=== PATIENT | male | born 1955 | race Caucasian/White ===

== ENCOUNTER 2016-10-11 12:28 | Observation (INO) | payer BC ==
--- NOTE | 2016-10-11 13:18 | ED ---
Recheck HPI - General Chief Complaint: Recheck/Abnormal Lab/Rx Stated Complaint: Neck Swelling Time Seen by Provider: 10/11/16 12:50 Source: patient, family, EMS, RN notes reviewed Mode of arrival: EMS Limitations: no limitations - History of Present Illness Initial Comments: Patient is a pleasant [age]-year-old male presenting to the emergency department for neck swelling. Patient states symptoms started around 1 week ago. Symptoms have progressively worsened. Patient was at [facility] last night and kept in observation. Symptoms worsened since last night and patient was only able to tolerate a couple bites of his breakfast. No dyspnea. Patient was transferred for ENT evaluation. Patient states he does have moderate to severe discomfort. - Related Data Home Medications Medication Instructions Recorded Confirmed Citalopram Hydrobromide [CeleXA] 40 mg PO DAILY 03/12/14 10/11/16 Furosemide [Lasix] 20 mg PO DAILY 03/12/14 10/11/16 Multivitamins, Thera [Multivitamin 1 tab PO DAILY 03/12/14 10/11/16 (formulary)] PHENobarbital 180 mg PO HS 03/12/14 10/11/16 Levothyroxine Sodium [Synthroid] 175 mcg PO DAILY 10/11/16 10/11/16 predniSONE 3 mg PO DAILY 10/11/16 10/11/16 predniSONE 5 mg PO DAILY 10/11/16 10/11/16 Allergies Allergy/AdvReac Type Severity Reaction Status Date / Time carbamazepine [From Tegretol] Allergy Dyspnea Verified 10/11/16 13:27 phenytoin sodium Allergy Rash/Hives Verified 10/11/16 13:27 [From Dilantin] Review of Systems ROS Statement: Those systems with pertinent positive or pertinent negative responses have been documented in the HPI. ROS Other: All systems not noted in ROS Statement are negative. Constitutional: Denies: fever, chills Eyes: Denies: eye pain ENT: Denies: ear pain Respiratory: Denies: cough, dyspnea Cardiovascular: Denies: chest pain Endocrine: Denies: fatigue Gastrointestinal: Denies: abdominal pain Genitourinary: Denies: urgency Musculoskeletal: Denies: back pain Skin: Denies: rash Neurological: Denies: weakness Past Medical History Past Medical History: COPD, Eye Disorder, Hypertension, Musculoskeletal Disorder , Osteoarthritis (OA), Pneumonia, Seizure Disorder, Sleep Apnea/CPAP/BIPAP, Thyroid Disorder Additional Past Medical History / Comment(s): TESTED POSITIVE FOR Lyme's , HAD 1 SEIZURE JUNE 05, 1994 NONE SINCE TAKE PHENOBARBITAL FOR THEM.HX TRIGEMINY, CATARACTS, ECZEMA LT PALM AND BEHIND EARS, NOT USING CPAP ANYMORE AFTER DROPPING 40 POUNDSDOES'NT NEED IT AMYMORE. HAS BXO, sarcoidosis History of Any Multi-Drug Resistant Organisms: MRSA Date of last positivie culture/infection: 2006/MRSA MDRO Source:: left knee Past Surgical History: Adenoidectomy, Joint Replacement, Orthopedic Surgery, Tonsillectomy Additional Past Surgical History / Comment(s): 12-30-13 RT KNEE MENISCUS SX, LT HIP REPLACEMENT 1998, MUSCLE BIOPSY RT THIGH-NEG, X3 ROTATOR CUFF SX THEN REPLACED IN 2012,, I&D LT KNEE POSITIVE FOR MRSA 2005, X3 CYSTOCOPIES, [id number],URETHERAL STENT, BUCKLE FLAP URETHROPLASTY. Past Anesthesia/Blood Transfusion Reactions: Motion Sickness, Postoperative Nausea & Vomiting (PONV) Additional Past Anesthesia/Blood Transfusion Reaction / Comment(s): HAD BLOOD TRANSFUSIONS WITHOUT PROBLEMS Past Psychological History: Depression Smoking Status: Never smoker - Past Family History Father Family Medical History: Congestive Heart Failure (CHF), Diabetes Mellitus, Myocardial Infarction ([place]) Additional Family Medical History / Comment(s): HEAVY SMOKER, EMPHYSEMA, FROM CHF Mother Family Medical History: Cancer Additional Family Medical History / Comment(s): FOUND ALL ATHRU HER BY TIME THEY FOUND. General Exam Limitations: no limitations General appearance: alert, in no apparent distress Head exam: Present: atraumatic Eye exam: Present: normal appearance, PERRL, EOMI ENT exam: Present: normal oropharynx Neck exam: Present: other (Left submandibular region with swelling, firmness and tenderness. No erythema or warmth.) Respiratory exam: Present: normal lung sounds bilaterally Cardiovascular Exam: Present: regular rate, normal rhythm GI/Abdominal exam: Present: soft. Absent: tenderness Extremities exam: Present: normal inspection Neurological exam: Present: alert Psychiatric exam: Present: normal affect, normal mood Skin exam: Present: normal color Course Vital Signs 10/11/16 10/11/16 12:31 13:32 Pulse Rate 91 100 Respiratory 17 18 Rate Blood Pressure 158/99 135/76 O2 Sat by Pulse 99 97 Oximetry Medical Decision Making - Medical Decision Making Case was discussed in detail with Dr. Elias, who will consult. He recommends medical admission and Unasyn. And Decadron. Disposition Clinical Impression: Sialadenitis Disposition: ADMITTED IP TO THIS HOSP Referrals: Pascual Andres MD [Primary Care Provider] - 1-2 days Decision Time: 13:53
[2016-10-11] MEDS ORDERED: MORPHINE SULFATE 4 MG/ML SYRINGE IVP STA (13:31)
[2016-10-11] MEDS ORDERED: MORPHINE SULFATE 4 MG/ML SYRINGE IV PRN (13:53)
[2016-10-11] MEDS ORDERED: HYDROcodone/APAP 5-325MG 1 EACH TAB PO PRN (13:53)
[2016-10-11] MEDS ORDERED: NALOXONE 0.4 MG/ML 1 ML VIAL IV PRN (13:53)
[2016-10-11] MEDS: SODIUM CHLORIDE 0.9% 1,000 ML IV SCH (15:19)
[2016-10-11] MEDS: AMPICILLIN-SULBACTAM 3 GM in SODIUM CHLORIDE 0.9% 100 ML IVPB SCH ×2 (16:10→23:41)
[2016-10-11] MEDS: DEXAMETHASONE SOD PHOSPHATE 4 MG/ML 1 ML VIAL IV SCH ×2 (16:10→23:42)
[2016-10-11] MEDS: PHENobarbital 64.8 MG TAB PO SCH (22:32)
[2016-10-12] MEDS: LEVOTHYROXINE 88 MCG TAB PO SCH (06:41)
[2016-10-12] MEDS: AMPICILLIN-SULBACTAM 3 GM in SODIUM CHLORIDE 0.9% 100 ML IVPB SCH ×2 (08:39→16:37)
[2016-10-12] MEDS ORDERED: LIDOCAINE 1% 20 ML VIAL (10MG/ML) FOR IV START INTRADERMA ONE (10:58)
[2016-10-12] MEDS ORDERED: LACTATED RINGERS 1,000 ML IV ONE (10:58)
[2016-10-12 11:07] LABS: Glucose,Whole Blood 103 mg/dL (75-99)
[2016-10-12] MEDS ORDERED: PROPOFOL 10 MG/ML 20 ML VIAL IV ONE (11:26)
[2016-10-12] MEDS ORDERED: HYDROCORTISONE SUCCINATE 100 MG/2 ML VIAL ONE (11:26)
[2016-10-12] MEDS ORDERED: SUCCINYLCHOLINE CHLORIDE 100 MG/5 ML SYR IV ONE (11:26)
[2016-10-12] MEDS ORDERED: MIDAZOLAM 2 MG/2 ML VIAL ONE (11:26)
[2016-10-12] MEDS ORDERED: LIDOCAINE 1% INJ 10MG/ML (20 ML MDV) ONE (11:26)
[2016-10-12] MEDS ORDERED: fentaNYL (PF) 50 MCG/ML 2 ML AMP ONE (11:26)
[2016-10-12] MEDS ORDERED: LIDOCAINE 2%-EPI 1:100,000 20 ML VIAL SQ ONE (11:46)
--- NOTE | 2016-10-12 12:09 | P.OP ---
Date of Procedure: 10/12/16 Preoperative Diagnosis: Sialolithiasis left Jefferson's duct with secondary sialoadenitis left submandibular Postoperative Diagnosis: Same Procedure(s) Performed: Sialolithotomy left Shravan's duct Implants: Anesthesia: RICARDOA Surgeon: Alfredo Cox Estimated Blood Loss (ml): 2 Condition: stable Disposition: PACU Indications for Procedure: This is a 61-year-old white male who for a week and intermittent swelling of the left submandibular gland with eating and drinking but this would subside. 2 days ago this became persistently swollen and tender and he went to the ER for evaluation with left submandibular sialoadenitis and was felt to be obstructive as her was a 4 mm calculus noted in the proximal duct. This could not be removed at bedside. He has improved quite markedly symptomatically with IV antibiotics and steroids already but still has some swelling of the left submandibular gland diffusely Operative Findings: Patient had purulence from the left Jefferson's duct. The calculus was too far proximal to be removed but is having improvement with symptoms and salivary flow and therefore no excessive manipulation of the duct was performed Description of Procedure: The patient was brought in the operative suite and placed in supine position. The patient underwent induction of general anesthesia with oral endotracheal intubation without difficulty. The patient was prepped and draped in usual aseptic fashion. The bite block was placed. The tongue was retracted. 1% lidocaine with 1 100,000 epinephrine was infused submucosally overlying the left Jefferson's duct. The duct was palpated and purulence was obtained at the orifice were he had sialolithotomy last night and this was cultured. The sialolithotomy was extended approximately 1 cm with the calculus could not be palpated any further at the distal aspect of the duct or even proximally. Given the fact that the patient has improved and is having more drainage now it was felt that any further manipulation of the duct could cause potential scarring and if the patient has any recurrent or chronic difficulties with this gland then would need to consider submandibular gland excision. The patient was allowed to emerge from anesthesia having tolerated procedure well was excised in the operating suite and transferred postoperative recovery area in satisfactory condition.
--- NOTE | 2016-10-12 12:10 | CONS ---
CONSULTATION Date of Consultation: REASON FOR CONSULTATION: Left neck swelling. HISTORY: This is a 61-year-old white male, who a week ago started having difficulties with intermittent left neck swelling particularly with eating or drinking where this would swell and then subside between meals. He has not had difficulties like this previous. He attempted to be seen by his primary care physician and could not get in, also called an ENT in [place] and could not get into their office. He has subsequently over the past 2 days worsened with more acute swelling and chronic swelling in the left mandibular area and ultimately was admitted to [facility] on IV antibiotics. He was not improving particularly and therefore and had CT scan of the neck showing some further swelling and therefore he came to the [place] [facility] for further evaluation and was admitted as he did have some hypopharyngeal swelling also. He had some dysphagia with this, although this has improved with the steroids. He has not had difficulties like this previously. His CT scan also showed a calculus in the left Shravan's duct area which was not reported on the CT from yesterday but was on the CT from today. This was reported on his CT from today. This was not able to be visualized on attempted CT review initially here including by myself. He has had no fever or chills and again has improved with the IV steroid and IV antibiotics. PAST MEDICAL HISTORY: Positive for COPD, hypertension, musculoskeletal osteoarthritis, seizure disorder, sleep apnea, thyroid disorder. PAST SURGICAL HISTORY: Adenoidectomy, joint replacement, orthopedic surgery, tonsillectomy, rotator cuff surgery, left knee surgery. cystoscopy, urethroscopy. ALLERGIES: TEGRETOL, PHENYTOIN. CURRENT MEDICATIONS: Celexa, Lasix, phenobarbital. multivitamin, Synthroid. SOCIAL HISTORY: Does not smoke or drink alcohol. FAMILY HISTORY: Noncontributory, other than as above. Denies fever or chills. VITAL SIGNS: Afebrile. Vital signs stable otherwise. GENERAL EXAM: Patient is alert, awake, and oriented x3. HEENT: Head normocephalic and atraumatic. Ears, bilateral canals are clear. Tympanic membranes are unremarkable, mobile, no history of drainage or discharge. Mouth and throat shows no abnormal masses or lesions. There was felt to be a palpable calculus left distal left Shravan's duct. No oral or oropharyngeal swelling. Hypopharynx and larynx are clear with good visualization of vocal cords and excellent airway. No trismus. Neck is supple. There diffuse swelling of the left submandibular gland which is firm with mild tenderness, is still mobile, mild to moderately tender. ASSESSMENT: Sialoadenitis left submandibular, left Shravan's duct calculus. PLAN: I recommend initial sialolithotomy at the bedside which was performed under local anesthesia at the duct but no calculus was noted and therefore no further persistence was noted. Minimal purulence was expressed from the duct; however. CT was then re- loaded on a different computer and images were able to be reviewed and the calculus was more in the proximal duct and not able to be removed at the bedside, therefore. Recommend sialolithotomy under anesthesia and I reviewed indications, alteratives, potential benefits and risks of procedure with the patient and his family with the risks including, but not inclusive of the risk of general anesthesia, bleeding, infection, scarring, duct blockage, inability to clear the calculus intraorally, ultimately potential need for submandibular gland excision, numbness, recurrent symptomatology. Patient understands the risks and agrees to proceed. This will be attempted to be scheduled for tomorrow. He will be n.p.o. at midnight. MMODL / IJN: [id number] /
[2016-10-12] MEDS: DEXAMETHASONE SOD PHOSPHATE 4 MG/ML 1 ML VIAL IV SCH ×2 (13:02→17:14)
[2016-10-12] MEDS: predniSONE 1 MG TAB PO SCH (13:06)
[2016-10-12] MEDS: CITALOPRAM HYDROBROMIDE 20 MG TAB PO SCH (13:06)
[2016-10-12] MEDS: predniSONE 5 MG TAB PO SCH (13:06)
[2016-10-12] MEDS: MULTIVITAMINS, THERA 1 EACH TAB PO SCH (13:06)
[2016-10-12] MEDS: FUROSEMIDE 20 MG TAB PO SCH (13:06)
[2016-10-12] MEDS: SODIUM CHLORIDE 0.9% 1,000 ML IV SCH (13:06)
--- NOTE | 2016-10-12 16:40 | HP ---
HISTORY AND PHYSICAL SUBJECTIVE: 61-year-old with left facial swelling. HISTORY OF PRESENT ILLNESS: This 61-year-old, developed neck swelling on the left-sided, parotid swelling. He came to the hospital due to increasing pain. Unable to tolerate chewing of any food. He has got no dyspnea. ENT will be seeing him in the morning due to moderate to severe discomfort. HOME MEDICATIONS: 1. Lasix 20 mg. 2. Celexa 40 daily. 3. Multivitamin daily. 4. Phenobarbital 180 q.h.s. 5. Prednisone 3 mg daily, 5 mg daily. 6. Synthroid 175 mcg daily. ALLERGIES: CARBAMAZEPINE AND DILANTIN. REVIEW OF SYSTEMS: Fourteen point review of symptoms negative except for as mentioned in HPI. PAST MEDICAL AND SURGICAL HISTORY: Includes right-sided parotid endarterectomy with stone removed at home by himself in the past, COPD, hypertension, osteoarthritis, pneumonia, seizure disordered, sleep apnea, hypothyroidism. He has history of trigeminy, trigeminal neuralgia, cataracts, eczema, sarcoidosis, surgery of adenoidectomy and joint replacements and orthopedic surgeries, tonsillectomy and right knee meniscus surgery. FAMILY HISTORY: Father with heart failure, diabetes and heart attack. Mother with cancer. PHYSICAL EXAM: Vital signs stable and afebrile. CARDIOVASCULAR: S1, S2. LUNGS: Clear. GI: Soft. HEMATOLOGIC: Negative Rachel's. PSYCH: Fair mood and affect. NEUROLOGIC: Alert, oriented x3. OPHTHALMOLOGIC: Pupils equal, round and reactive to light and accommodation. ENT shows left mandibular swelling and parotid swelling and inner cheek tenderness to palpation over the duct area. ASSESSMENT: Acute sialoadenitis. Admit, ENT consultation, pain control, fluids will be given, n.p.o. MMODL / IJN: [id number] /
[2016-10-12] MEDS: PHENobarbital 64.8 MG TAB PO SCH (20:30)
[2016-10-13] MEDS: AMPICILLIN-SULBACTAM 3 GM in SODIUM CHLORIDE 0.9% 100 ML IVPB SCH ×2 (01:49→08:11)
[2016-10-13] MEDS: DEXAMETHASONE SOD PHOSPHATE 4 MG/ML 1 ML VIAL IV SCH ×2 (01:50→08:11)
[2016-10-13] MEDS: LEVOTHYROXINE 88 MCG TAB PO SCH (06:37)
[2016-10-13 08:11] VITALS: BP 160/89; PULSE 74; RESP 16; TEMP 98
[2016-10-13] MEDS: CITALOPRAM HYDROBROMIDE 20 MG TAB PO SCH (08:11)
[2016-10-13] MEDS: predniSONE 1 MG TAB PO SCH (08:11)
[2016-10-13] MEDS: predniSONE 5 MG TAB PO SCH (08:11)
[2016-10-13] MEDS: FUROSEMIDE 20 MG TAB PO SCH (09:34)
--- NOTE | 2016-10-13 10:35 | PN ---
PROGRESS NOTE SUBJECTIVE: 61-year-old, white male, who is having no chest pain, shortness of breath. Vital signs are reviewed. Still has some swelling on his left facial area. He is going to have a stone extracted in the OR today. Cardiovascular: S1, S2. Lungs: Transmitted upper airway sounds. Hematologic: Negative Homans. ENT: Swelling on the left cheek unchanged. ASSESSMENT: 1. Obstructive sialoadenitis. 2. Obesity. For further conditions see old chart. Cleared for surgery. Make sure his EKG looks good prior to surgery. MMODL / IJN: [id number] /
[2016-10-13] MEDS: MULTIVITAMINS, THERA 1 EACH TAB PO SCH (12:48)
--- NOTE | 2016-10-13 19:24 | P.DS ---
Providers Date of admission: 10/11/16 13:53 Attending physician: Adrian Ayala Consults: 10/11/16 13:54 Consult Physician Urgent Consulting Provider: Alfredo Cox Reason/Comments: Obstructive sialadenitis Do you want consulting provider notified?: Already Contacted [facility] Course: This 61-year-old gentleman that is admitted to the hospital with the significant swelling in his left neck. Patient was noted to have sialadenitis due to an obstruction Patient underwent an operative procedure by ENT was noted to have pus Patient was started on antibiotics and was given steroids Patient apparently has had multiple episodes of similar sialadenitis has a long history of dry eyes and dry mouth When questioned about a previous evaluation for sjogrens syndrome patient states he's never been evaluated Today she continues to have some swelling in his neck however nontender to palpation para lungs are clear to auscultation para graft heart S1-S2 heard no murmurs appreciable Abdomen soft nontender no organomegaly Head is atraumatic normocephalic pupils equal round reactive light, patient No significant conjunctival erythema is noted Discharge diagnoses #1 sialadenitis #2 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 Did discuss use in artificial tears and artificial saliva Patient be discharged on Augmentin and prednisone Is to follow-up with Dr. Sorto Plan - Discharge Summary New Discharge Prescriptions: New Amoxic-Pot Clav 500-125 mg [Augmentin 500-125 mg] 1 tab PO Q12HR #10 tab methylPREDNISolone Dose Pack [Medrol Dose Pack] 4 mg PO DIRECTED #21 package Continue Citalopram Hydrobromide [CeleXA] 40 mg PO DAILY Furosemide [Lasix] 20 mg PO DAILY PHENobarbital 180 mg PO HS Multivitamins, Thera [Multivitamin (formulary)] 1 tab PO DAILY predniSONE 3 mg PO DAILY predniSONE 5 mg PO DAILY Levothyroxine Sodium [Synthroid] 175 mcg PO DAILY Discharge Medication List Citalopram Hydrobromide [CeleXA] 40 mg PO DAILY 03/12/14 [History] Furosemide [Lasix] 20 mg PO DAILY 03/12/14 [History] Multivitamins, Thera [Multivitamin (formulary)] 1 tab PO DAILY 03/12/14 [History ] PHENobarbital 180 mg PO HS 03/12/14 [History] Levothyroxine Sodium [Synthroid] 175 mcg PO DAILY 10/11/16 [History] predniSONE 3 mg PO DAILY 10/11/16 [History] predniSONE 5 mg PO DAILY 10/11/16 [History] Amoxic-Pot Clav 500-125 mg [Augmentin 500-125 mg] 1 tab PO Q12HR #10 tab [Rx] methylPREDNISolone Dose Pack [Medrol Dose Pack] 4 mg PO DIRECTED #21 package 10/13/16 [Rx] Follow up Appointment(s)/Referral(s): Alfredo Cox MD [STAFF PHYSICIAN] - 1 Week Pascual Andres MD [Primary Care Provider] - 1 Week Activity/Diet/Wound Care/Special Instructions: Needs follow-up in office [address] Sorto (patient to call office on Saturday morning) If patient's symptoms worsen in the meantime he is to call. Diet as tolerated Discharge Disposition: HOME SELF-CARE
== END 2016-10-13 15:35 | disposition home or self-care (01) ==
LOC: EC 12:28 → 3OBS 13:53
PROVIDERS: ADMIT Family Medicine; ATTEND Family Medicine
DX: K11.21 Acute sialoadenitis (principal); K11.5 Sialolithiasis; R68.2 Dry mouth, unspecified; H04.123 Dry eye syndrome of bilateral lacrimal glands; E66.9 Obesity, unspecified; Z68.34 Body mass index [BMI] 34.0-34.9, adult; Z79.899 Other long term (current) drug therapy; Z79.52 Long term (current) use of systemic steroids; Z88.8 Allergy status to other drugs, medicaments and biological substances; Z86.14 Personal history of Methicillin resistant Staphylococcus aureus infection; F32.9 Major depressive disorder, single episode, unspecified; Z83.3 Family history of diabetes mellitus; Z82.49 Family history of ischemic heart disease and other diseases of the circulatory system; I10 Essential (primary) hypertension; Z87.01 Personal history of pneumonia (recurrent); G40.909 Epilepsy, unspecified, not intractable, without status epilepticus; A69.20 Lyme disease, unspecified; R00.8 Other abnormalities of heart beat; E03.9 Hypothyroidism, unspecified; Z80.9 Family history of malignant neoplasm, unspecified; E78.5 Hyperlipidemia, unspecified; J44.9 Chronic obstructive pulmonary disease, unspecified; D86.9 Sarcoidosis, unspecified; G47.33 Obstructive sleep apnea (adult) (pediatric); K21.9 Gastro-esophageal reflux disease without esophagitis
CPT/HCPCS: 42330; 99284 ×2; 96375 ×3; 96365; 96366 ×2; 96376; 86226; 87070; 87205; 87075; G0378 ×3; J2250; J2270 ×2; J1100 ×3; J1720; J2001; J3010; J0295 ×3; J0330; J2704; J7512 ×4

== ENCOUNTER 2021-07-29 09:06 | Inpatient (IN) | payer MEDICARE, OTHER ==
--- NOTE | 2021-07-29 09:21 | ED ---
General Adult HPI - General Chief complaint: Shortness of Breath Stated complaint: SOB, Covid + Time Seen by Provider: 07/29/21 09:07 Source: patient, EMS, RN notes reviewed, old records reviewed (Reviewed report from [facility]) Mode of arrival: EMS Limitations: no limitations - History of Present Illness Initial comments: Patient is a pleasant 66-year-old male presenting to the emergency Department with shortness of breath. Patient does have history of sarcoidosis affecting the lungs and is in the process of getting a transplant list at [facility]. Patient went to [facility] with symptoms onset 2 days ago. Patient has been having more shortness of breath. Patient does have cough with clear yellow sputum. Patient has been fatigued. Patient does wear 4 L oxygen at home. While at [facility] patient was diagnosed with pneumonia and COVID-19 infection. White blood cell count elevated at 16. They did try to transfer to [facility] however they did not have any beds available for least 5 days. They were under the impression that patient had pulmonary doctor here however patient states this is not true. Patient reportedly had pulse ox 86% on 4 L that raised to 94% on 5 L. Patient was given Rocephin and azithromycin and DuoNeb. Blood cultures were ordered. - Related Data Home Medications Medication Instructions Recorded Confirmed Citalopram Hydrobromide [CeleXA] 40 mg PO DAILY 03/12/14 10/11/16 Furosemide [Lasix] 20 mg PO DAILY 03/12/14 10/11/16 Multivitamins, Thera [Multivitamin 1 tab PO DAILY 03/12/14 10/11/16 (formulary)] PHENobarbital 180 mg PO HS 03/12/14 10/11/16 Levothyroxine Sodium [Synthroid] 175 mcg PO DAILY 10/11/16 10/11/16 predniSONE 3 mg PO DAILY 10/11/16 10/11/16 predniSONE 5 mg PO DAILY 10/11/16 10/11/16 Previous Rx's Medication Instructions Recorded Amoxic-Pot Clav 500-125 mg 1 tab PO Q12HR #10 tab 10/13/16 [Augmentin 500-125 mg] methylPREDNISolone Dose Pack 4 mg PO DIRECTED #21 package 10/13/16 [Medrol Dose Pack] Allergies Allergy/AdvReac Type Severity Reaction Status Date / Time carbamazepine [From Tegretol] Allergy Dyspnea Verified 10/11/16 13:27 phenytoin sodium Allergy Rash/Hives Verified 10/11/16 13:27 [From Dilantin] Review of Systems ROS Statement: Those systems with pertinent positive or pertinent negative responses have been documented in the HPI. ROS Other: All systems not noted in ROS Statement are negative. Constitutional: Reports: chills Eyes: Denies: eye pain ENT: Denies: ear pain Respiratory: Reports: as per HPI, cough, dyspnea Cardiovascular: Denies: chest pain Endocrine: Reports: fatigue Gastrointestinal: Denies: abdominal pain Genitourinary: Denies: dysuria Musculoskeletal: Denies: back pain Skin: Denies: rash Neurological: Denies: weakness Past Medical History Past Medical History: Eye Disorder, Hypertension, Musculoskeletal Disorder, Osteoarthritis (OA), Pneumonia, Seizure Disorder, Sleep Apnea/CPAP/BIPAP, Thyroid Disorder Additional Past Medical History / Comment(s): TESTED POSITIVE FOR Lyme's , HAD 1 SEIZURE JUNE 05, 1994 NONE SINCE TAKE PHENOBARBITAL FOR THEM.HX TRIGEMINY, CATARACTS, ECZEMA LT PALM AND BEHIND EARS, NOT USING CPAP ANYMORE AFTER DROPPING 40 POUNDS.DOES'NT NEED IT AMYMORE. sarcoidosis History of Any Multi-Drug Resistant Organisms: MRSA Date of last positivie culture/infection: 2005/MRSA MDRO Source:: left knee Past Surgical History: Joint Replacement, Orthopedic Surgery, Tonsillectomy Additional Past Surgical History / Comment(s): 12-30-13 RT KNEE MENISCUS SX, LT HIP REPLACEMENT 1998, MUSCLE BIOPSY RT THIGH-NEG, X2 ROTATOR CUFF SX, X1 LT ROTATORCUFF, THEN REPLACED IN 2012,, I&D LT KNEE POSITIVE FOR MRSA 2005, X3 CYSTOSCOPIES, X3 URETHROTOMY,URETHERAL STENT, BUCKLE FLAP URETHROPLASTY."OPEN LUNG BX- DX W/SARCOIDOSIS.TOTQALLT SHOULDER REPLACEMENT, TOTAL RT KNEE REPLACMENT. MEDIASTINAL BX D/T ENLARGED LYMPH NODE-NEG Past Anesthesia/Blood Transfusion Reactions: Motion Sickness, Postoperative Nausea & Vomiting (PONV) Additional Past Anesthesia/Blood Transfusion Reaction / Comment(s): HAD BLOOD TRANSFUSIONS WITHOUT PROBLEMS Past Psychological History: Depression Smoking Status: Never smoker Past Alcohol Use History: None Reported Past Drug Use History: None Reported - Past Family History Father Family Medical History: Congestive Heart Failure (CHF), Diabetes Mellitus, Myocardial Infarction ([place]) Additional Family Medical History / Comment(s): HEAVY SMOKER, EMPHYSEMA, FROM CHF Mother Family Medical History: Cancer Additional Family Medical History / Comment(s): FOUND ALL ATHRU HER BY TIME THEY FOUND. General Exam Limitations: no limitations General appearance: alert Head exam: Present: normocephalic Eye exam: Present: normal appearance Neck exam: Present: normal inspection Respiratory exam: Present: decreased breath sounds Cardiovascular Exam: Present: regular rate, normal rhythm GI/Abdominal exam: Present: soft. Absent: tenderness Extremities exam: Present: normal inspection. Absent: pedal edema, calf tenderness Neurological exam: Present: alert Psychiatric exam: Present: normal affect, normal mood Skin exam: Present: normal color Course Vital Signs 07/29/21 09:07 Temperature 98.6 F Pulse Rate 102 H Respiratory 18 Rate Blood Pressure 101/85 O2 Sat by Pulse 97 Oximetry - Reevaluation(s) Reevaluation #1: 07/29/21 09:33 Patient is made aware of treatment plan. Patient is more short of breath following chest x-ray and nebulizer has been ordered. Case was discussed with Dr. Rose, who will admit covering hospital call. EKG Findings - EKG Comments: EKG Findings:: Sinus rhythm 92. W[place] 196. QRS 97. QT 337. QTC 387. Left axis. LVH criteria. No acute ST change. Disposition Clinical Impression: COVID-19, Sarcoidosis, lung Disposition: ADMITTED IP TO THIS HOSP Is patient prescribed a controlled substance at d/c from ED?: No Referrals: Pascual Andres MD [Primary Care Provider] - 1-2 days Time of Disposition: 09:20
[2021-07-29] MEDS ORDERED: methylPREDNISolone SOD SUCCI 125 MG/2 ML VIAL IV STA (09:34)
[2021-07-29] MEDS ORDERED: IPRATROPIUM-ALBUTEROL 3 ML NEB INHALATION PRN (09:34)
[2021-07-29] MEDS ORDERED: PNEUMONIA PROTOCOL UTILIZED 1 EACH MISC PO PRN (09:36)
[2021-07-29] MEDS: ASCORBIC ACID 500 MG TAB PO SCH ×2 (09:40→20:34)
[2021-07-29] MEDS: CHOLECALCIFEROL 125 MCG (5000 IU) TABLET PO SCH (09:40)
[2021-07-29] MEDS: ZINC SULFATE 220 MG CAP PO SCH (09:40)
--- NOTE | 2021-07-29 10:05 | XR ---
EXAMINATION TYPE: XR chest 2V DATE OF EXAM: 07/29/2021 COMPARISON: Chest x-ray 07/28/2021, CT soft tissue neck from outside institution 10/11/2016, CT chest HISTORY: Dyspnea, Covid 19 positive, abnormal chest x-ray TECHNIQUE: Frontal and lateral views of the chest are obtained. FINDINGS: Tracheal deviation toward the right is again noted, there is prominence of the superior me diastinum as on prior. Patchy density, possible atelectasis or airspace disease again seen in the rig ht upper lobe, there is underlying prominence interstitium. Cardiac mediastinal sweat shows a similar appearance. There is no evident pneumothorax or sizable effusion. Postop changes are noted to the sh oulders, there are overlying leads. IMPRESSION: Findings are similar to prior exam, there is some chronic scarring right upper lobe, dif ficult to exclude pneumonia versus atelectasis, there are underlying interstitial changes within the lungs..
[2021-07-29] MEDS ORDERED: ALBUTEROL HFA INHALER INHALATION PRN (10:09)
[2021-07-29] MEDS: ALBUTEROL HFA INHALER INHALATION SCH ×3 (11:52→20:02)
[2021-07-29] MEDS ORDERED: IPRATROPIUM-ALBUTEROL 3 ML NEB INHALATION SCH (12:00)
[2021-07-29] MEDS ORDERED: REMDESIVIR 200 MG in SODIUM CHLORIDE 0.9% 250 ML IVPB ONE (12:30)
[2021-07-29] MEDS: LEVOTHYROXINE 88 MCG TAB PO SCH (12:38)
[2021-07-29] MEDS: methylPREDNISolone SOD SUCCI 125 MG/2 ML VIAL IV SCH ×2 (12:39→17:39)
--- NOTE | 2021-07-29 12:58 | P.CNPUL ---
History of Present Illness Consult date: 07/29/21 Requesting physician: Cathy Rose Reason for consult: other (COVID-19 infection and sarcoidosis) Chief complaint: Shortness of breath History of present illness: This is a 66-year-old white male with history of multiple medical problems including sarcoidosis which was diagnosed back in 2014, the diagnosis was made by mediastinoscopy and lymph node biopsy. Since then, the patient has been following up with a chief technology officer out of [facility], and he has been on prednisone all along since then. The prednisone dose has been gradually tapered over the years down to 5 mg daily although a 20 point he was on very high-dose at the time of his initial diagnosis. Recently he had an episode of bronchitis, and his dose was increased to 30 mg daily. Patient was supposedly evaluated at [facility] for potential lung transplantation, and that is in progress. Patient was seen yesterday at [facility] with 2 days history of shortness of breath, cough, the cough is productive with clear and sometimes yellow phlegm. Patient has been generally weak and fatigued. He normally wears 4 L of oxygen at home. Chest x-ray showed chronic changes in the lungs, scarring related to sarcoidosis, difficult to tell whether the patient has acute pneumonitis. However the patient had a positive covid 19 test, and the patient was supposed to transfer to [facility] however they did not have any beds available. Patient was sent to the ER at [facility], and he was admitted. Patient is again normally on 4 L nasal cannula, his O2 saturation on arrival was 86% on 4 L, and he was placed on 5 L instead. Presently the patient is on 3 L nasal cannula and his O2 sats is 98% labs done yesterday showed relatively normal d-dimer lactic acid was a bit elevated at 3.0. Review of Systems Constitutional: Fever, weakness, fatigue. HEENT: Minimal nasal congestion. Pulmonary: Cough and shortness of breath Cardiac: Negative GI: Negative Genitourinary: Negative Musculoskeletal: Weakness Neurologic: Negative no headaches Psychiatric: Negative Skin: Negative Endocrine: Negative Hematologic: Negative Past Medical History Past Medical History: Eye Disorder, Hypertension, Musculoskeletal Disorder, Osteoarthritis (OA), Pneumonia, Seizure Disorder, Sleep Apnea/CPAP/BIPAP, Thyroid Disorder Additional Past Medical History / Comment(s): TESTED POSITIVE FOR Lyme's , HAD 1 SEIZURE JUNE 05, 1994 NONE SINCE TAKE PHENOBARBITAL FOR THEM.HX TRIGEMINY, CATARACTS, ECZEMA LT PALM AND BEHIND EARS, NOT USING CPAP ANYMORE AFTER DROPPING 40 POUNDS.DOES'NT NEED IT AMYMORE. sarcoidosis History of Any Multi-Drug Resistant Organisms: MRSA Date of last positivie culture/infection: 2005/MRSA MDRO Source:: left knee Past Surgical History: Joint Replacement, Orthopedic Surgery, Tonsillectomy Additional Past Surgical History / Comment(s): 12-30-13 RT KNEE MENISCUS SX, LT HIP REPLACEMENT 1998, MUSCLE BIOPSY RT THIGH-NEG, X2 ROTATOR CUFF SX, X1 LT ROTATORCUFF, THEN REPLACED IN 2012,, I&D LT KNEE POSITIVE FOR MRSA 2005, X3 CYSTOSCOPIES, X3 URETHROTOMY,URETHERAL STENT, BUCKLE FLAP URETHROPLASTY."OPEN LUNG BX- DX W/SARCOIDOSIS.TOTQALLT SHOULDER REPLACEMENT, TOTAL RT KNEE REPLACMENT. MEDIASTINAL BX D/T ENLARGED LYMPH NODE-NEG Past Anesthesia/Blood Transfusion Reactions: Motion Sickness, Postoperative Nausea & Vomiting (PONV) Additional Past Anesthesia/Blood Transfusion Reaction / Comment(s): HAD BLOOD TRANSFUSIONS WITHOUT PROBLEMS Past Psychological History: Depression Additional Psychological History / Comment(s): PT IS INDEPENDANT. . NO OUT SIDE SERVICES RECIEVED. HAS NEBULIZER, CANE IF NEEDED , BSC, RAISED TOILET SEAT. NO PETS. NO PAST SERVICE. 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 Smoking Status: Never smoker Past Alcohol Use History: None Reported Past Drug Use History: None Reported - Past Family History Father Family Medical History: Congestive Heart Failure (CHF), Diabetes Mellitus, Myocardial Infarction ([place]) Additional Family Medical History / Comment(s): HEAVY SMOKER, EMPHYSEMA, FROM CHF Mother Family Medical History: Cancer Additional Family Medical History / Comment(s): . Medications and Allergies Home Medications Medication Instructions Recorded Confirmed Type Citalopram Hydrobromide [CeleXA] 40 mg PO DAILY 03/12/14 07/29/21 History Furosemide [Lasix] 20 mg PO DAILY 03/12/14 07/29/21 History Levothyroxine Sodium [Synthroid] 175 mcg PO DAILY 10/11/16 07/29/21 History Atorvastatin [Lipitor] 40 mg PO HS 07/29/21 07/29/21 History Clopidogrel [Plavix] 75 mg PO DAILY 07/29/21 07/29/21 History Fluticasone/Umeclidin/Vilanter 1 puff INHALATION RT-DAILY 07/29/21 07/29/21 History [Chandulecalvin Ellipta 100-62.5-25] Ipratropium-Albuterol Nebulize 3 ml INHALATION RT-TID PRN 07/29/21 07/29/21 History [Duoneb 0.5 mg-3 mg/3 ml Soln] Isosorbide Mononitrate ER [Imdur] 30 mg PO DAILY 07/29/21 07/29/21 History Metoprolol Succinate [Metoprolol 25 mg PO DAILY 07/29/21 07/29/21 History Succinate ER] levETIRAcetam [Keppra] 500 mg PO Q12HR 07/29/21 07/29/21 History predniSONE 30 mg PO DAILY 07/29/21 07/29/21 History Allergies Allergy/AdvReac Type Severity Reaction Status Date / Time carbamazepine [From Tegretol] Allergy Dyspnea Verified 10/11/16 13:27 phenytoin sodium Allergy Rash/Hives Verified 10/11/16 13:27 [From Dilantin] Physical Exam Vitals: Vital Signs Temp Pulse Resp BP BP Pulse Ox 07/29/21 11:56 98 07/29/21 11:07 16 116/67 07/29/21 10:04 93 18 120/74 97 07/29/21 09:55 98 07/29/21 09:54 94 20 07/29/21 09:45 94 20 07/29/21 09:07 98.6 F 102 H 18 101/85 97 Intake and Output 07/28/21 07/29/21 07/29/21 22:59 06:59 14:59 Other: Weight 102.058 kg Physical Exam: Revealed 66-year-old white male, obese, in no distress, seems to be a bit anxious. Patient is now on 3 L nasal cannula. O2 saturation is 98%. Head: Atraumatic, normocephalic. Patient is slightly cushingoid secondary to steroid use over the years. HEENT:[ Short obese neck. Neck is supple.] [No neck masses.] [No thyromegaly.] [No JVD.] Chest: Crackles and rhonchi noted bilaterally. Symmetrical chest expansion. Cardiac Exam: Distant S1 and S2. , no S3 gallop, no murmur.] Abdomen: [Obese, Soft, nontender, no megaly, no rebound, no guarding, normal bowel sounds.] Extremities: [No clubbing, no edema, no cyanosis.] Neurological Exam: [No focal neurologic deficit.] Alert and oriented 3. Psychiatric: Anxious mood, appropriate affect, normal mental status examination. Skin: No rashes. Musculoskeletal: No deformities and no limitation in range of motion. Results - Laboratory Findings PT/INR, D-dimer D-Dimer 0.29 mg/L FEU (<0.60) 07/29/21 11:36 Abnormal lab findings: Abnormal Labs 07/29/21 11:36 Plasma Lactic Acid Sb 3.0 H* - Diagnostic Findings Chest x-ray: image reviewed (As noted in HPI.) Assessment and Plan Assessment: Impression Acute COVID-19 infection, cannot rule out acute COVID-19 pneumonia considering the patient has baseline abnormal chest x-ray and baseline abnormal CT of the chest consistent with his pulmonary sarcoidosis history. History of pulmonary sarcoidosis. History of seizure disorder. History of degenerative joint disease. Patient is vaccinated, and boosted, patient received a total of 3 moderna vaccine shots. Acute on chronic hypoxic respiratory failure mostly secondary to sarcoidosis, possible underlying COVID-19 pneumonia Recommendation: Patient will be placed on the Remdesivir as he seems to be within the therapeutic window for Remdesivir. Continue oxygen. COVID-19 cocktail. Placed on Solu-Medrol 60 mg IV push every 6 hours and eventually transitioned to his usual dose of prednisone Check pro calcitonin level and decide whether the patient would benefit from adding antibiotics. Patient is now on Zithromax. And Rocephin However will discontinue antibiotics if pro calcitonin level is normal. Continue bronchodilators GI and DVT prophylaxis. We will continue to follow. Time with Patient: Greater than 30
[2021-07-29] MEDS ORDERED: SODIUM CHLORIDE 0.9% 500 ML 500 ML IV ONE (13:33)
[2021-07-29 17:50] LABS: Glucose,Whole Blood 181 mg/dL (70-110)
[2021-07-29] MEDS: levETIRAcetam 500 MG TAB PO SCH (20:34)
[2021-07-29] MEDS: ATORVASTATIN 40 MG TAB PO SCH (20:35)
[2021-07-29 20:43] LABS: Glucose,Whole Blood 179 mg/dL (70-110)
--- NOTE | 2021-07-29 22:25 | P.HPIM ---
History of Present Illness H&P Date: 07/29/21 Chief Complaint: shortness of breath Patient is a 66-year-old male with a known history of pulmonary sarcoidosis status post biopsy, hypertension, seizure disorder, obstructive sleep apnea, hypothyroidism, depression and prior history of Lyme's positive initially presented to [facility] due to complaints of shortness of breath, cough and congestion with worsening symptoms for the past 2 days. Patient was tested positive for COVID-19 infection was transferred to [facility] for evaluation. Patient is on oxygen at 4 L via nasal cannula at home. He was saturating at 86% on 4 L when he presented to ER and increased to 5 L. Patient denies any fever. No complaints of nausea or vomiting. No diarrhea. Denies any dysuria or hematuria. No headache or dizziness or lightheadedness. Laboratory data from [facility] reviewed. Lactic acid was elevated at 3.0. Chest x-ray showed findings are similar to prior exam, there is some chronic scarring right upper lobe., Difficult to exclude pneumonia versus atelectasis. There is underlying interstitial changes within the lungs. EKG showed sinus rhythm. Review of Systems Constitutional: Patient denies any fever or chills . Generalized weakness. Abdomen: Patient denied any nausea or vomiting or abd. pain Cardiovascular: Patient denies any chest pain or short of breath no palpitations. Respiratory: Patient does have cough and shortness of breath. No sputum prod uction. Neurologic: Patient denied any numbness or tingling headache. Musculoskeletal: Patient denies any complaints of joint swelling or deformity. Skin: Negative Psychiatric: Negative Endocrine: No heat or cold intolerance. No recent weight gain. Genitourinary: No dysuria or hematuria. All other 14 point ROS negative except the above Past Medical History Past Medical History: Eye Disorder, Hypertension, Musculoskeletal Disorder, Osteoarthritis (OA), Pneumonia, Seizure Disorder, Sleep Apnea/CPAP/BIPAP, Thyroid Disorder Additional Past Medical History / Comment(s): TESTED POSITIVE FOR Lyme's , HAD 1 SEIZURE JUNE 05, 1994 NONE SINCE TAKE PHENOBARBITAL FOR THEM.HX TRIGEMINY, CATARACTS, ECZEMA LT PALM AND BEHIND EARS, NOT USING CPAP ANYMORE AFTER DROPPING 40 POUNDS.DOES'NT NEED IT AMYMORE. sarcoidosis History of Any Multi-Drug Resistant Organisms: MRSA Date of last positivie culture/infection: 2005/MRSA MDRO Source:: left knee Past Surgical History: Joint Replacement, Orthopedic Surgery, Tonsillectomy Additional Past Surgical History / Comment(s): 12-30-13 RT KNEE MENISCUS SX, LT HIP REPLACEMENT 1998, MUSCLE BIOPSY RT THIGH-NEG, X2 ROTATOR CUFF SX, X1 LT ROTATORCUFF, THEN REPLACED IN 2012,, I&D LT KNEE POSITIVE FOR MRSA 2005, X3 CYSTOSCOPIES, X3 URETHROTOMY,URETHERAL STENT, BUCKLE FLAP URETHROPLASTY."OPEN LUNG BX- DX W/SARCOIDOSIS.TOTQALLT SHOULDER REPLACEMENT, TOTAL RT KNEE REPLACMENT. MEDIASTINAL BX D/T ENLARGED LYMPH NODE-NEG Past Anesthesia/Blood Transfusion Reactions: Motion Sickness, Postoperative Nausea & Vomiting (PONV) Additional Past Anesthesia/Blood Transfusion Reaction / Comment(s): HAD BLOOD TRANSFUSIONS WITHOUT PROBLEMS Past Psychological History: Depression Smoking Status: Never smoker Past Alcohol Use History: None Reported Past Drug Use History: None Reported - Past Family History Father Family Medical History: Congestive Heart Failure (CHF), Diabetes Mellitus, Myocardial Infarction ([place]) Additional Family Medical History / Comment(s): HEAVY SMOKER, EMPHYSEMA, FROM CHF Mother Family Medical History: Cancer Additional Family Medical History / Comment(s): FOUND ALL ATHRU HER BY TIME THEY FOUND. Medications and Allergies Home Medications Medication Instructions Recorded Confirmed Type Citalopram Hydrobromide [CeleXA] 40 mg PO DAILY 03/12/14 07/29/21 History Furosemide [Lasix] 20 mg PO DAILY 03/12/14 07/29/21 History Levothyroxine Sodium [Synthroid] 175 mcg PO DAILY 10/11/16 07/29/21 History Atorvastatin [Lipitor] 40 mg PO HS 07/29/21 07/29/21 History Clopidogrel [Plavix] 75 mg PO DAILY 07/29/21 07/29/21 History Fluticasone/Umeclidin/Vilanter 1 puff INHALATION RT-DAILY 07/29/21 07/29/21 History [Trelecalvin Ellipta 100-62.5-25] Ipratropium-Albuterol Nebulize 3 ml INHALATION RT-TID PRN 07/29/21 07/29/21 History [Duoneb 0.5 mg-3 mg/3 ml Soln] Isosorbide Mononitrate ER [Imdur] 30 mg PO DAILY 07/29/21 07/29/21 History Metoprolol Succinate [Metoprolol 25 mg PO DAILY 07/29/21 07/29/21 History Succinate ER] levETIRAcetam [Keppra] 500 mg PO Q12HR 07/29/21 07/29/21 History predniSONE 30 mg PO DAILY 07/29/21 07/29/21 History Allergies Allergy/AdvReac Type Severity Reaction Status Date / Time carbamazepine [From Tegretol] Allergy Dyspnea Verified 10/11/16 13:27 phenytoin sodium Allergy Rash/Hives Verified 10/11/16 13:27 [From Dilantin] Physical Exam Vitals: Vital Signs Temp Pulse Resp BP Pulse Ox 07/29/21 10:04 93 18 120/74 97 07/29/21 09:55 98 07/29/21 09:54 94 20 07/29/21 09:45 94 20 07/29/21 09:07 98.6 F 102 H 18 101/85 97 Intake and Output 07/28/21 07/29/21 07/29/21 22:59 06:59 14:59 Other: Weight 102.058 kg PHYSICAL EXAMINATION: Patient is lying in the bed comfortably, no acute distress, awake alert and oriented.. HEENT: Normocephalic. Neck is supple. Pupils reactive. Nostrils clear. Oral cavity is moist. Neck reveals no JVD, carotid bruits, or thyromegaly. CHEST EXAMINATION: Trachea is central. Symmetrical expansion bilateral diminished and coarse breath sounds.. CARDIAC: Normal S1, S2 with no gallops. No murmurs ABDOMEN: Soft. Bowel sounds present. Nontender. No organomegaly. No abdominal bruits. Extremities: reveal no edema. No clubbing or cyanosis Neurologically awake, alert, oriented x3 with well-coordinated movements. No focal deficits noted Skin: No rash or skin lesions. Psychiatric: Coperative. Nonsuicidal, anxious. Musculoskeletal: No joint swelling or deformity. Normal range of motion. Results CBC & Chem 7: 07/30/21 09:58 07/30/21 09:58 Thrombosis Risk Factor Assmnt - DVT/VTE Prophylaxis DVT/VTE Prophylaxis: Pharmacologic Prophylaxis ordered Assessment and Plan Assessment: Acute on chronic hypoxic respiratory failure secondary to COVID-19 pneumonia. Patient is vaccinated. Symptoms for the past 2 days prior to admission. History of pulmonary sarcoidosis diagnosed with biopsy and is on prednisone daily at home. Hypertension Hypothyroidism History of seizure disorder Hyperlipidemia Osteoarthritis DVT prophylax with Lovenox subcu Plan: Patient will be continued on methylprednisolone 60 mg every 6 hourly and multivitamin supplementation and Lovenox subcu for anticoagulation. Oxygen supplementation at 4 L via nasal cannula. Patient was started on empiric antibiotics in the form of ceftriaxone and azithromycin for possible pneumonia. Procalcitonin level was ordered. Pulmonary was consulted. Continue with home medications and follow-up closely. Continue with droplet and contact precautions. Follow-up closely. Time with Patient: Greater than 30
[2021-07-30] MEDS: methylPREDNISolone SOD SUCCI 125 MG/2 ML VIAL IV SCH ×4 (00:28→17:05)
[2021-07-30] MEDS: LEVOTHYROXINE 88 MCG TAB PO SCH (05:34)
[2021-07-30 06:24] LABS: Glucose,Whole Blood 149 mg/dL (70-110)
[2021-07-30] MEDS: ALBUTEROL HFA INHALER INHALATION SCH ×4 (07:55→19:44)
[2021-07-30] MEDS: TIOTROPIUM 2.5 MCG INHALER INHALATION SCH (07:56)
[2021-07-30] MEDS: SYMBICORT 80-4.5 MCG INHALER INHALATION SCH ×2 (07:56→19:43)
[2021-07-30] MEDS ORDERED: NON FORMULARY DRUG (Fluticasone/Umeclidin/Vilanter [Trelegy Ellipta 100-62.5-25] 1 EACH Bl INHALATION SCH (08:00)
--- NOTE | 2021-07-30 08:06 | XR ---
EXAMINATION TYPE: XR chest 1V DATE OF EXAM: 07/30/2021 7:09 AM COMPARISON: Chest radiograph from one day prior. TECHNIQUE: XR chest 1V Frontal view of the chest. CLINICAL INDICATION:Male, 66 years old with history of pneumonia; FINDINGS: Lungs/Pleura: Similar right upper lobe and left lower lobe airspace opacities. There is Blunting of t he costophrenic angles right greater than left. Pulmonary vascularity: Unremarkable. Heart/mediastinum: Cardiomediastinal silhouette is partially obscured due to overlying and adjacent o pacities. Musculoskeletal: No acute osseous pathology. Bilateral reverse shoulder arthroplasties are present. IMPRESSION: Similar airspace opacities within the right upper lobe and left lower lobe, difficult to exclude pneu monia versus atelectasis, there remains chronic underlying interstitial changes within the lungs.
[2021-07-30] MEDS: ASCORBIC ACID 500 MG TAB PO SCH ×2 (08:49→21:07)
[2021-07-30] MEDS: CITALOPRAM HYDROBROMIDE 20 MG TAB PO SCH (08:49)
[2021-07-30] MEDS: ISOSORBIDE MONONITRATE ER 30 MG TAB.ER.24H PO SCH (08:49)
[2021-07-30] MEDS: levETIRAcetam 500 MG TAB PO SCH ×2 (08:49→21:07)
[2021-07-30] MEDS: ZINC SULFATE 220 MG CAP PO SCH (08:49)
[2021-07-30] MEDS: ENOXAPARIN 40 MG/0.4 ML SYRINGE SQ SCH (08:49)
[2021-07-30] MEDS: CLOPIDOGREL 75 MG TAB PO SCH (08:49)
[2021-07-30] MEDS: CHOLECALCIFEROL 125 MCG (5000 IU) TABLET PO SCH (08:49)
[2021-07-30] MEDS ORDERED: AZITHROMYCIN 500 MG TAB PO SCH (09:00)
[2021-07-30 10:22] LABS: Basophils # (A) 0.1 k/uL (0-0.2); Basophils % (A) 1 %; Eosinophils % (A) 0 %; HCT 39.6 % (39.0-53.0); HGB 12.7 gm/dL (13.0-17.5); Lymphocytes # (A) 0.4 k/uL (1.0-4.8); Lymphocytes % (A) 2 %; MCH 31.3 pg (25.0-35.0); MCV 97.7 fL (80.0-100.0); Mean Platelet Volume 7.4; Monocytes # (A) 0.5 k/uL (0-1.0); Monocytes % (A) 3 %; Neutrophils # (A) 15.8 k/uL (1.3-7.7); Neutrophils % (A) 93 %; Platelet Count 255 k/uL (150-450); RBC 4.06 m/uL (4.30-5.90); RDW 14.7 % (11.5-15.5); WBC 16.9 k/uL (3.8-10.6)
[2021-07-30 10:32] LABS: ALT 15 U/L (4-49); AST 17 U/L (17-59); African American GFR (CKD) >90 (>60 ml/min/1.73 sqM); Albumin 3.7 g/dL (3.5-5.0); Alkaline Phosphatase 57 U/L (38-126); Anion Gap 8 mmol/L; Blood Urea Nitrogen 27 mg/dL (9-20); Calcium 8.5 mg/dL (8.4-10.2); Carbon Dioxide 29 mmol/L (22-30); Chloride 103 mmol/L (98-107); Glucose 186 mg/dL (74-99); LDH 845 U/L (313-618); Non-African American GFR(CKD) >90 (>60 ml/min/1.73 sqM); Potassium 4.4 mmol/L (3.5-5.1); Sodium 140 mmol/L (137-145); Total Bilirubin 0.4 mg/dL (0.2-1.3); Total Protein 6.6 g/dL (6.3-8.2)
--- NOTE | 2021-07-30 10:35 | P.PN ---
Subjective Progress Note Date: 07/30/21 Principal diagnosis: COVID-19 infection This is a 66-year-old white male with history of multiple medical problems including sarcoidosis which was diagnosed back in 2014, the diagnosis was made by mediastinoscopy and lymph node biopsy. Since then, the patient has been following up with a manager port out of [facility], and he has been on prednisone all along since then. The prednisone dose has been gradually tapered over the years down to 5 mg daily although a 20 point he was on very high-dose at the time of his initial diagnosis. Recently he had an episode of bronchitis, and his dose was increased to 30 mg daily. Patient was supposedly evaluated at [facility] for potential lung transplantation, and that is in progress. Patient was seen yesterday at [facility] with 2 days history of shortness of breath, cough, the cough is productive with clear and sometimes yellow phlegm. Patient has been generally weak and fatigued. He normally wears 4 L of oxygen at home. Chest x-ray showed chronic changes in the lungs, scarring related to sarcoidosis, difficult to tell whether the patient has acute pneumonitis. However the patient had a positive covid 19 test, and the patient was supposed to transfer to [facility] however they did not have any beds available. Patient was sent to the ER at [facility], and he was admitted. Patient is again normally on 4 L nasal cannula, his O2 saturation on arrival was 86% on 4 L, and he was placed on 5 L instead. Presently the patient is on 3 L nasal cannula and his O2 sats is 98% labs done yesterday showed relatively normal d-dimer lactic acid was a bit elevated at 3.0. The patient is seen today 07/30/2021 in follow-up on the selective care unit. He is currently sitting up in bed. Awake and alert in no acute distress. Still with some dyspnea on exertion. Dyspnea with conversation. He is still maintaining good O2 saturations in the 90s on 4 L/m per nasal cannula which is his home level. O2 saturation at 98%. He is afebrile. Hemodynamically stable. Sputum culture pending. White count 16.9. Hemoglobin 12.7. Platelets 255. Lymphocytes 0.4. Glucose 149. ER was 0.29. Pro-calcitonin 0.07. He is continued on Symbicort, Spiriva, albuterol, IV Solu-Medrol. Remains on vitamin supplements. This is day #2 of Remdesivir. Lovenox for DVT prophylaxis. Objective - Vital Signs Vital signs: Vital Signs Temp 98.1 F 07/30/21 08:00 Pulse 50 L 07/30/21 08:00 Resp 16 07/30/21 08:00 BP 114/71 07/30/21 08:00 Pulse Ox 98 07/30/21 08:00 FiO2 Intake & Output 07/29/21 07/30/21 07/30/21 18:59 06:59 18:59 Output Total 250 Balance -250 Weight 102.058 kg Output: Urine 250 Other: # Voids 2 1 - Exam GENERAL EXAM: Alert, very pleasant 66-year-old gentleman, on 4 L nasal cannula, fairly comfortable in no apparent distress. HEAD: Normocephalic. EYES: Normal reaction of pupils, equal size. NOSE: Clear with pink turbinates. THROAT: No erythema or exudates. NECK: No masses, no JVD. CHEST: No chest wall deformity. LUNGS: Equal air entry with bilateral wheeze, scattered rhonchi, diminished. CVS: S1 and S2 normal with no audible murmur, regular rhythm. ABDOMEN: No hepatosplenomegaly, normal bowel sounds, no guarding or rigidity. SPINE: No scoliosis or deformity SKIN: No rashes CENTRAL NERVOUS SYSTEM: No focal deficits, tone is normal in all 4 extremities. EXTREMITIES: There is no peripheral edema. No clubbing, no cyanosis. Peripheral pulses are intact. - Labs CBC & Chem 7: 07/30/21 09:58 Labs: Abnormal Lab Results - Last 24 Hours (Table) 07/29/21 07/29/21 07/29/21 Range/Units 11:36 17:48 20:41 WBC (3.8-10.6) k/uL RBC (4.30-5.90) m/uL Hgb (13.0-17.5) gm/dL Neutrophils # (1.3-7.7) k/uL Lymphocytes # (1.0-4.8) k/uL POC Glucose (mg/dL) 181 H 179 H (70-110) mg/dL Plasma Lactic Acid Sb 3.0 H* (0.7-2.0) mmol/L 07/30/21 07/30/21 Range/Units 06:22 09:58 WBC 16.9 H (3.8-10.6) k/uL RBC 4.06 L (4.30-5.90) m/uL Hgb 12.7 L (13.0-17.5) gm/dL Neutrophils # 15.8 H (1.3-7.7) k/uL Lymphocytes # 0.4 L (1.0-4.8) k/uL POC Glucose (mg/dL) 149 H (70-110) mg/dL Plasma Lactic Acid Sb (0.7-2.0) mmol/L Microbiology - Last 24 Hours (Table) 07/29/21 16:19 Gram Stain - Preliminary Sputum Sputum Culture - Preliminary Assessment and Plan Assessment: 1 Acute COVID-19 infection, cannot rule out acute COVID-19 pneumonia considering the patient has baseline abnormal chest x-ray and baseline abnormal CT of the chest consistent with his pulmonary sarcoidosis history. Initiated on Remdesivir, Lovenox, vitamin supplements on 07/29/2021. Pro-calcitonin 0.07 2 History of pulmonary sarcoidosis. 3 History of seizure disorder. 4 History of degenerative joint disease. 5 Patient is vaccinated, and boosted, patient received a total of 3 moderna vaccine shots. 6 Acute on chronic hypoxic respiratory failure mostly secondary to sarcoidosis, possible underlying COVID-19 pneumonia 9 Hypothyroidism Plan: The patient was seen and evaluated Chest x-ray, labs and medications reviewed Day #2 of Remdesivir Remains on vitamin supplements, Lovenox Remains on IV Solu-Medrol, bronchodilators Procalcitonin 0.07 Titrate the FiO2 as tolerated Increase his activity as tolerated We will continue to follow I have personally seen and examined the patient, performed the documentation and the assessment and plan as written. Number of minutes spent on the visit: 10.
[2021-07-30 11:45] LABS: Glucose,Whole Blood 175 mg/dL (70-110)
[2021-07-30 11:52] LABS: C Reactive Protein 2.6 mg/dL (<1.0)
[2021-07-30] MEDS: REMDESIVIR 100 MG in SODIUM CHLORIDE 0.9% 250 ML IVPB SCH (15:07)
[2021-07-30 16:55] LABS: Glucose,Whole Blood 232 mg/dL (70-110)
[2021-07-30 21:01] LABS: Glucose,Whole Blood 181 mg/dL (70-110)
[2021-07-30] MEDS: ATORVASTATIN 40 MG TAB PO SCH (21:07)
[2021-07-30] MEDS: INSULIN ASPART (NovoLOG) 100 UNIT/ML VIAL SQ SCH (21:07)
--- NOTE | 2021-07-30 23:00 | P.PN ---
Subjective Progress Note Date: 07/30/21 Patient is a 66-year-old male with a known history of pulmonary sarcoidosis status post biopsy, hypertension, seizure disorder, obstructive sleep apnea, hypothyroidism, depression and prior history of Lyme's positive initially presented to [facility] due to complaints of shortness of breath, cough a nd congestion with worsening symptoms for the past 2 days. Patient was tested positive for COVID-19 infection was transferred to [facility] for evaluation. Patient is on oxygen at 4 L via nasal cannula at home. He was saturating at 86% on 4 L when he presented to ER and increased to 5 L. Patient denies any fever. No complaints of nausea or vomiting. No diarrhea. Denies any dysuria or hematuria. No headache or dizziness or lightheadedness. Laboratory data from [facility] reviewed. Lactic acid was elevated at 3.0. Chest x-ray showed findings are similar to prior exam, there is some chronic scarring right upper lobe., Difficult to exclude pneumonia versus atelectasis. There is underlying interstitial changes within the lungs. EKG showed sinus rhythm. 07/30/2021 Patient is currently resting in the bed. Awake alert and oriented x3. Does have cough but unable to bring out any sputum. Currently on oxygen at 4 L via nasal cannula. Procalcitonin level is not elevated and antibiotics have been discontinued. Chest x-ray showed similar airspace opacities within the right upper lobe and left lower lobe, difficult to exclude pneumonia versus atelectasis, there remains chronic underlying interstitial changes within the lungs. Laboratory showed WBC 16.9 hemoglobin 12.7 platelets 255 sodium 140 potassium 4.4 chloride 103 bicarb is 29 BUN 27 creatinine 0.76 blood sugar 186 liver appears are not elevated LDH is 845 and CRP 2.6. Patient is being continued duo nebs and was started on remdesivir. Patient is also on Solu-Medrol 60 mg every 6 hourly. Pulmonary is on board. Current medications reviewed. Objective - Vital Signs Vital signs: Vital Signs Temp 97.3 F L 07/30/21 20:00 Pulse 74 07/30/21 20:00 Resp 16 07/30/21 20:00 BP 126/65 07/30/21 20:00 Pulse Ox 98 07/30/21 20:00 FiO2 Intake & Output 07/30/21 07/30/21 07/31/21 06:59 18:59 06:59 Output Total 250 Balance -250 Output: Urine 250 Other: # Voids 1 2 - Exam PHYSICAL EXAMINATION: Patient is lying in the bed comfortably, no acute distress, awake alert and oriented.. HEENT: Normocephalic. Neck is supple. Pupils reactive. Nostrils clear. Oral cavity is moist. Neck reveals no JVD, carotid bruits, or thyromegaly. CHEST EXAMINATION: Trachea is central. Symmetrical expansion bilateral diminished and coarse breath sounds.. CARDIAC: Normal S1, S2 with no gallops. No murmurs ABDOMEN: Soft. Bowel sounds present. Nontender. No organomegaly. No abdominal bruits. Extremities: reveal no edema. No clubbing or cyanosis Neurologically awake, alert, oriented x3 with well-coordinated movements. No focal deficits noted Skin: No rash or skin lesions. Psychiatric: Coperative. Nonsuicidal, anxious. Musculoskeletal: No joint swelling or deformity. Normal range of motion. - Labs CBC & Chem 7: 07/30/21 09:58 07/30/21 09:58 Labs: Abnormal Lab Results - Last 24 Hours (Table) 07/30/21 07/30/21 07/30/21 Range/Units 06:22 09:58 09:58 WBC 16.9 H (3.8-10.6) k/uL RBC 4.06 L (4.30-5.90) m/uL Hgb 12.7 L (13.0-17.5) gm/dL Neutrophils # 15.8 H (1.3-7.7) k/uL Lymphocytes # 0.4 L (1.0-4.8) k/uL BUN 27 H (9-20) mg/dL Glucose 186 H (74-99) mg/dL POC Glucose (mg/dL) 149 H (70-110) mg/dL Lactate Dehydrogenase 845 H (313-618) U/L C-Reactive Protein 2.6 H (<1.0) mg/dL 07/30/21 07/30/21 07/30/21 Range/Units 11:43 16:54 20:57 WBC (3.8-10.6) k/uL RBC (4.30-5.90) m/uL Hgb (13.0-17.5) gm/dL Neutrophils # (1.3-7.7) k/uL Lymphocytes # (1.0-4.8) k/uL BUN (9-20) mg/dL Glucose (74-99) mg/dL POC Glucose (mg/dL) 175 H 232 H 181 H (70-110) mg/dL Lactate Dehydrogenase (313-618) U/L C-Reactive Protein (<1.0) mg/dL Microbiology - Last 24 Hours (Table) 07/29/21 16:19 Gram Stain - Preliminary Sputum Sputum Culture - Preliminary Assessment and Plan Assessment: Acute on chronic hypoxic respiratory failure secondary to COVID-19 pneumonia. Patient is vaccinated. Symptoms for the past 2 days prior to admission. History of pulmonary sarcoidosis diagnosed with biopsy and is on prednisone daily at home. Hypertension Hypothyroidism History of seizure disorder Hyperlipidemia Osteoarthritis DVT prophylax with Lovenox subcu Plan: Patient will be continued on methylprednisolone 60 mg every 6 hourly and multivitamin supplementation and Lovenox subcu for anticoagulation. Oxygen supplementation at 4 L via nasal cannula. Patient was started on empiric antibiotics in the form of ceftriaxone and azithromycin for possible pneumonia. Procalcitonin level not elevated. abx Dced Pulmonary was consulted. He was started on remdesivir course. Continue with home medications and follow-up closely. Continue with droplet and contact precautions. Follow-up closely. Time with Patient: Greater than 30
[2021-07-31] MEDS: methylPREDNISolone SOD SUCCI 125 MG/2 ML VIAL IV SCH ×5 (00:27→23:45)
[2021-07-31 06:40] LABS: Glucose,Whole Blood 145 mg/dL (70-110)
[2021-07-31] MEDS: LEVOTHYROXINE 88 MCG TAB PO SCH (06:53)
[2021-07-31] MEDS: INSULIN ASPART (NovoLOG) 100 UNIT/ML VIAL SQ SCH ×4 (06:54→20:59)
[2021-07-31] MEDS: ALBUTEROL HFA INHALER INHALATION SCH ×4 (08:32→19:24)
[2021-07-31] MEDS: SYMBICORT 80-4.5 MCG INHALER INHALATION SCH ×2 (08:33→19:24)
[2021-07-31] MEDS: TIOTROPIUM 2.5 MCG INHALER INHALATION SCH (08:33)
[2021-07-31] MEDS: ASCORBIC ACID 500 MG TAB PO SCH ×2 (09:45→20:59)
[2021-07-31] MEDS: ENOXAPARIN 40 MG/0.4 ML SYRINGE SQ SCH (09:45)
[2021-07-31] MEDS: CLOPIDOGREL 75 MG TAB PO SCH (09:45)
[2021-07-31] MEDS: ZINC SULFATE 220 MG CAP PO SCH (09:45)
[2021-07-31] MEDS: levETIRAcetam 500 MG TAB PO SCH ×2 (09:45→20:59)
[2021-07-31] MEDS: CHOLECALCIFEROL 125 MCG (5000 IU) TABLET PO SCH (09:45)
[2021-07-31] MEDS: ISOSORBIDE MONONITRATE ER 30 MG TAB.ER.24H PO SCH (09:45)
[2021-07-31] MEDS: CITALOPRAM HYDROBROMIDE 20 MG TAB PO SCH (09:45)
[2021-07-31 09:53] LABS: Basophils % (A) 0 %; Eosinophils % (A) 0 %; HCT 39.1 % (39.0-53.0); HGB 12.5 gm/dL (13.0-17.5); Hypochromasia Slight; Lymphocytes # (A) 0.3 k/uL (1.0-4.8); Lymphocytes % (A) 2 %; MCH 31.8 pg (25.0-35.0); MCV 99.4 fL (80.0-100.0); Macrocytosis Slight; Mean Platelet Volume 7.7; Monocytes # (A) 0.4 k/uL (0-1.0); Monocytes % (A) 2 %; Neutrophils # (A) 16.9 k/uL (1.3-7.7); Neutrophils % (A) 95 %; Platelet Count 252 k/uL (150-450); RBC 3.94 m/uL (4.30-5.90); RDW 14.7 % (11.5-15.5); WBC 17.8 k/uL (3.8-10.6)
[2021-07-31 10:14] LABS: African American GFR (CKD) >90 (>60 ml/min/1.73 sqM); Anion Gap 8 mmol/L; Blood Urea Nitrogen 31 mg/dL (9-20); C Reactive Protein 1.7 mg/dL (<1.0); Calcium 8.4 mg/dL (8.4-10.2); Carbon Dioxide 28 mmol/L (22-30); Chloride 104 mmol/L (98-107); Glucose 201 mg/dL (74-99); LDH 988 U/L (313-618); Non-African American GFR(CKD) >90 (>60 ml/min/1.73 sqM); Potassium 4.6 mmol/L (3.5-5.1); Sodium 140 mmol/L (137-145)
--- NOTE | 2021-07-31 11:45 | P.PN ---
Subjective Progress Note Date: 07/31/21 Principal diagnosis: COVID-19 infection This is a 66-year-old white male with history of multiple medical problems including sarcoidosis which was diagnosed back in 2014, the diagnosis was made by mediastinoscopy and lymph node biopsy. Since then, the patient has been following up with a nurse transitional out of [facility], and he has been on prednisone all along since then. The prednisone dose has been gradually tapered over the years down to 5 mg daily although a 20 point he was on very high-dose at the time of his initial diagnosis. Recently he had an episode of bronchitis, and his dose was increased to 30 mg daily. Patient was supposedly evaluated at [facility] for potential lung transplantation, and that is in progress. Patient was seen yesterday at [facility] with 2 days history of shortness of breath, cough, the cough is productive with clear and sometimes yellow phlegm. Patient has been generally weak and fatigued. He normally wears 4 L of oxygen at home. Chest x-ray showed chronic changes in the lungs, scarring related to sarcoidosis, difficult to tell whether the patient has acute pneumonitis. However the patient had a positive covid 19 test, and the patient was supposed to transfer to [facility] however they did not have any beds available. Patient was sent to the ER at [facility], and he was admitted. Patient is again normally on 4 L nasal cannula, his O2 saturation on arrival was 86% on 4 L, and he was placed on 5 L instead. Presently the patient is on 3 L nasal cannula and his O2 sats is 98% labs done yesterday showed relatively normal d-dimer lactic acid was a bit elevated at 3.0. The patient is seen today 07/30/2021 in follow-up on the selective care unit. He is currently sitting up in bed. Awake and alert in no acute distress. Still with some dyspnea on exertion. Dyspnea with conversation. He is still maintaining good O2 saturations in the 90s on 4 L/m per nasal cannula which is his home level. O2 saturation at 98%. He is afebrile. Hemodynamically stable. Sputum culture pending. White count 16.9. Hemoglobin 12.7. Platelets 255. Lymphocytes 0.4. Glucose 149. ER was 0.29. Pro-calcitonin 0.07. He is continued on Symbicort, Spiriva, albuterol, IV Solu-Medrol. Remains on vitamin supplements. This is day #2 of Remdesivir. Lovenox for DVT prophylaxis. The patient was seen today 07/31/2021 in follow-up on the selective care unit. He is currently resting comfortably in bed. Awake and alert in no acute distress. Maintaining O2 saturations up to 99% on 4 L/m per nasal cannula. He's been afebrile. Hemodynamically stable. Sputum culture revealed no growth. White count 17.8. Hemoglobin 12.5. Platelet count 252. D-dimer 0.28. Sodium 140. Potassium 4.6. BUN 31. Creatinine 0.86. LDH 988. C-reactive protein 1.7. He is continued on Symbicort, Spiriva, albuterol, IV Solu-Medrol. Remains on vitamin supplements. This is day #3 of Remdesivir. Lovenox for DVT prophylaxis. Objective - Vital Signs Vital signs: Vital Signs Temp 97.1 F L 07/31/21 04:00 Pulse 82 07/31/21 04:00 Resp 16 07/31/21 04:00 BP 139/69 07/31/21 04:00 Pulse Ox 99 07/31/21 04:00 FiO2 Intake & Output 07/30/21 07/31/21 07/31/21 18:59 06:59 18:59 Intake Total 10 Balance 10 Intake: IV 10 Invasive Line 2 10 Other: # Voids 2 1 - Exam GENERAL EXAM: Alert, very pleasant 66-year-old gentleman, on 4 L nasal cannula, fairly comfortable in no apparent distress. HEAD: Normocephalic. EYES: Normal reaction of pupils, equal size. NOSE: Clear with pink turbinates. THROAT: No erythema or exudates. NECK: No masses, no JVD. CHEST: No chest wall deformity. LUNGS: Equal air entry with bilateral wheeze, scattered rhonchi, diminished. CVS: S1 and S2 normal with no audible murmur, regular rhythm. ABDOMEN: No hepatosplenomegaly, normal bowel sounds, no guarding or rigidity. SPINE: No scoliosis or deformity SKIN: No rashes CENTRAL NERVOUS SYSTEM: No focal deficits, tone is normal in all 4 extremities. EXTREMITIES: There is no peripheral edema. No clubbing, no cyanosis. Peripheral pulses are intact. - Labs CBC & Chem 7: 07/31/21 08:36 07/31/21 08:36 Labs: Abnormal Lab Results - Last 24 Hours (Table) 07/30/21 07/30/21 07/30/21 Range/Units 09:58 11:43 16:54 WBC (3.8-10.6) k/uL RBC (4.30-5.90) m/uL Hgb (13.0-17.5) gm/dL Neutrophils # (1.3-7.7) k/uL Lymphocytes # (1.0-4.8) k/uL BUN (9-20) mg/dL Glucose (74-99) mg/dL POC Glucose (mg/dL) 175 H 232 H (70-110) mg/dL Lactate Dehydrogenase (313-618) U/L C-Reactive Protein 2.6 H (<1.0) mg/dL 07/30/21 07/31/21 07/31/21 Range/Units 20:57 06:36 08:36 WBC (3.8-10.6) k/uL RBC (4.30-5.90) m/uL Hgb (13.0-17.5) gm/dL Neutrophils # (1.3-7.7) k/uL Lymphocytes # (1.0-4.8) k/uL BUN 31 H (9-20) mg/dL Glucose 201 H (74-99) mg/dL POC Glucose (mg/dL) 181 H 145 H (70-110) mg/dL Lactate Dehydrogenase 988 H (313-618) U/L C-Reactive Protein 1.7 H (<1.0) mg/dL 07/31/21 Range/Units 08:36 WBC 17.8 H (3.8-10.6) k/uL RBC 3.94 L (4.30-5.90) m/uL Hgb 12.5 L (13.0-17.5) gm/dL Neutrophils # 16.9 H (1.3-7.7) k/uL Lymphocytes # 0.3 L (1.0-4.8) k/uL BUN (9-20) mg/dL Glucose (74-99) mg/dL POC Glucose (mg/dL) (70-110) mg/dL Lactate Dehydrogenase (313-618) U/L C-Reactive Protein (<1.0) mg/dL Microbiology - Last 24 Hours (Table) 07/29/21 16:19 Gram Stain - Final Sputum Sputum Culture - Final Assessment and Plan Assessment: 1 Acute COVID-19 infection, cannot rule out acute COVID-19 pneumonia considering the patient has baseline abnormal chest x-ray and baseline abnormal CT of the chest consistent with his pulmonary sarcoidosis history. Initiated on Remdesivir, Lovenox, vitamin supplements on 07/29/2021. Pro-calcitonin 0.07 2 History of pulmonary sarcoidosis. 3 History of seizure disorder. 4 History of degenerative joint disease. 5 Patient is vaccinated, and boosted, patient received a total of 3 moderna vaccine shots. 6 Acute on chronic hypoxic respiratory failure mostly secondary to sarcoidosis, possible underlying COVID-19 pneumonia 9 Hypothyroidism Plan: The patient was seen and evaluated Labs and medications reviewed Day #3 of Remdesivir Remains on vitamin supplements, Lovenox Remains on IV Solu-Medrol, bronchodilators Increase his activity as tolerated We will continue to follow I have personally seen and examined the patient, performed the documentation and the assessment and plan as written. Number of minutes spent on the visit: 10.
[2021-07-31 11:54] LABS: Glucose,Whole Blood 198 mg/dL (70-110)
--- NOTE | 2021-07-31 15:16 | PN ---
PROGRESS NOTE DATE OF SERVICE: 07/31/2021 This 66-year-old gentleman who was admitted with acute COVID 19 pneumonia also had sarcoidosis and possibly sarcoid lung also. The patient is receiving Remdesivir. No chest pain. No palpitation. PHYSICAL EXAMINATION: Pulse is 82. Blood pressure 139/69. Respiration 14. HEENT: Conjunctivae normal. Neck: No JVD. Respiration: Breath sounds diminished in the bases. A few scattered rhonchi and crackles. Abdomen: Soft. Nervous system: No focal deficits. LABS: WBC 17, hemoglobin 12.5. ASSESSMENT: 1. Acute COVID 19 infection with COVID 19 pneumonia with acute hypoxic respiratory failure. 2. Pulmonary sarcoidosis. 3. Hypertension. 4. Hypothyroidism. RECOMMENDATIONS AND DISCUSSION: Recommend to continue current medications, symptomatic treatment. Otherwise, repeat labs. Closely follow with Pulmonary. Add incentive spirometry. Infectious Disease evaluation. Guarded prognosis. Further recommendations to follow. MMODL / IJN: [id number] /
[2021-07-31 16:40] LABS: Glucose,Whole Blood 212 mg/dL (70-110)
[2021-07-31] MEDS: REMDESIVIR 100 MG in SODIUM CHLORIDE 0.9% 250 ML IVPB SCH (17:24)
[2021-07-31 20:48] LABS: Glucose,Whole Blood 186 mg/dL (70-110)
[2021-07-31] MEDS: ATORVASTATIN 40 MG TAB PO SCH (20:59)
--- NOTE | 2021-07-31 22:46 | P.CONS ---
History of Present Illness - Reason for Consult Consult date: 07/31/21 - History of Present Illness Patient is a 66-year male with a past medical he significant for sarcoidosis currently on a lung transplant list at [facility] presented to [facility] on 07/29/2021 for evaluation of increasing shortness of breath that had been getting worse for 2 days before presentation to the hospital patient also complaining of cough which is moderate intensity with some clear sputum no hemoptysis and no pleuritic chest pain patient also complains of feeling fatigue and weakness no nausea no vomiting no abdominal pain no diarrhea patient was diagnosed with COVID-19 infection and subsequently has been transferred to this facility for further work-up patient on presentation to the hospital was afebrile patient has been 96 to 97% on 4 L which is baseline for him patient did have a elevated lactic acid procalcitonin was normal CRP was elevated D-dimer was normal did have elevated white count with a left shift chest x-ray with some interstitial infiltrate patient has been admitted to the hospital he was started on Solu-Medrol Lovenox and remdesivir infectious disease was consulted today for further management Past Medical History Past Medical History: Eye Disorder, Hypertension, Musculoskeletal Disorder, Osteoarthritis (OA), Pneumonia, Seizure Disorder, Sleep Apnea/CPAP/BIPAP, Thyroid Disorder Additional Past Medical History / Comment(s): TESTED POSITIVE FOR Lyme's , HAD 1 SEIZURE JUNE 05, 1994 NONE SINCE TAKE PHENOBARBITAL FOR THEM.HX TRIGEMINY, CATARACTS, ECZEMA LT PALM AND BEHIND EARS, NOT USING CPAP ANYMORE AFTER DROPPING 40 POUNDS.DOES'NT NEED IT AMYMORE. sarcoidosis History of Any Multi-Drug Resistant Organisms: MRSA Year Discovered:: 2005/MRSA MDRO Source:: left knee Past Surgical History: Joint Replacement, Orthopedic Surgery, Tonsillectomy Additional Past Surgical History / Comment(s): 12-30-13 RT KNEE MENISCUS SX, LT HIP REPLACEMENT 1998, MUSCLE BIOPSY RT THIGH-NEG, X2 ROTATOR CUFF SX, X1 LT ROTATORCUFF, THEN REPLACED IN 2012,, I&D LT KNEE POSITIVE FOR MRSA 2005, X3 CYSTOSCOPIES, X3 URETHROTOMY,URETHERAL STENT, BUCKLE FLAP URETHROPLASTY."OPEN LUNG BX- DX W/SARCOIDOSIS.TOTQALLT SHOULDER REPLACEMENT, TOTAL RT KNEE REPLACMENT. MEDIASTINAL BX D/T ENLARGED LYMPH NODE-NEG Past Anesthesia/Blood Transfusion Reactions: Motion Sickness, Postoperative Nausea & Vomiting (PONV) Additional Past Anesthesia/Blood Transfusion Reaction / Comm: HAD BLOOD TRANSFUSIONS WITHOUT PROBLEMS Past Psychological History: Depression Smoking Status: Never smoker Past Alcohol Use History: None Reported Past Drug Use History: None Reported - Past Family History Father Family Medical History: Congestive Heart Failure (CHF), Diabetes Mellitus, Myocardial Infarction (DC) Additional Family Medical History / Comment(s): HEAVY SMOKER, EMPHYSEMA, FROM CHF Mother Family Medical History: Cancer Additional Family Medical History / Comment(s): FOUND ALL ATHRU HER BY TIME THEY FOUND. Medications and Allergies Home Medications Medication Instructions Recorded Confirmed Type Citalopram Hydrobromide [CeleXA] 40 mg PO DAILY 03/12/14 07/29/21 History Furosemide [Lasix] 20 mg PO DAILY 03/12/14 07/29/21 History Levothyroxine Sodium [Synthroid] 175 mcg PO DAILY 10/11/16 07/29/21 History Atorvastatin [Lipitor] 40 mg PO HS 07/29/21 07/29/21 History Clopidogrel [Plavix] 75 mg PO DAILY 07/29/21 07/29/21 History Fluticasone/Umeclidin/Vilanter 1 puff INHALATION RT-DAILY 07/29/21 07/29/21 History [Trelegy Ellipta 100-62.5-25] Ipratropium-Albuterol Nebulize 3 ml INHALATION RT-TID PRN 07/29/21 07/29/21 History [Duoneb 0.5 mg-3 mg/3 ml Soln] Isosorbide Mononitrate ER [Imdur] 30 mg PO DAILY 07/29/21 07/29/21 History Metoprolol Succinate [Metoprolol 25 mg PO DAILY 07/29/21 07/29/21 History Succinate ER] levETIRAcetam [Keppra] 500 mg PO Q12HR 07/29/21 07/29/21 History predniSONE 30 mg PO DAILY 07/29/21 07/29/21 History Allergies Allergy/AdvReac Type Severity Reaction Status Date / Time carbamazepine [From Tegretol] Allergy Dyspnea Verified 10/11/16 13:27 phenytoin sodium Allergy Rash/Hives Verified 10/11/16 13:27 [From Dilantin] Physical Exam Vitals: Vital Signs Temp Pulse Resp BP Pulse Ox 07/31/21 04:00 97.1 F L 82 16 139/69 99 07/31/21 00:30 97.4 F L 84 16 139/66 99 07/30/21 20:00 97.3 F L 74 16 126/65 98 Intake and Output 07/31/21 07/31/21 07/31/21 06:59 14:59 22:59 Intake Total 10 Balance 10 Intake: IV 10 Invasive Line 2 10 Other: # Voids 1 1 Results CBC & Chem 7: 07/31/21 08:36 07/31/21 08:36 Labs: Abnormal Lab Results - Last 24 Hours (Table) 07/30/21 07/30/21 07/31/21 Range/Units 16:54 20:57 06:36 WBC (3.8-10.6) k/uL RBC (4.30-5.90) m/uL Hgb (13.0-17.5) gm/dL Neutrophils # (1.3-7.7) k/uL Lymphocytes # (1.0-4.8) k/uL BUN (9-20) mg/dL Glucose (74-99) mg/dL POC Glucose (mg/dL) 232 H 181 H 145 H (70-110) mg/dL Lactate Dehydrogenase (313-618) U/L C-Reactive Protein (<1.0) mg/dL 07/31/21 07/31/21 07/31/21 Range/Units 08:36 08:36 11:48 WBC 17.8 H (3.8-10.6) k/uL RBC 3.94 L (4.30-5.90) m/uL Hgb 12.5 L (13.0-17.5) gm/dL Neutrophils # 16.9 H (1.3-7.7) k/uL Lymphocytes # 0.3 L (1.0-4.8) k/uL BUN 31 H (9-20) mg/dL Glucose 201 H (74-99) mg/dL POC Glucose (mg/dL) 198 H (70-110) mg/dL Lactate Dehydrogenase 988 H (313-618) U/L C-Reactive Protein 1.7 H (<1.0) mg/dL 07/31/21 Range/Units 16:38 WBC (3.8-10.6) k/uL RBC (4.30-5.90) m/uL Hgb (13.0-17.5) gm/dL Neutrophils # (1.3-7.7) k/uL Lymphocytes # (1.0-4.8) k/uL BUN (9-20) mg/dL Glucose (74-99) mg/dL POC Glucose (mg/dL) 212 H (70-110) mg/dL Lactate Dehydrogenase (313-618) U/L C-Reactive Protein (<1.0) mg/dL Microbiology - Last 24 Hours (Table) 07/29/21 16:19 Gram Stain - Final Sputum Sputum Culture - Final Assessment and Plan Plan: 1patient presented to hospital with increasing shortness of breath which is multifactorial and likely component of COVID-19 infection in this patient with underlying sarcoidosis and clinic not behaving as a secondary bacterial pneumonia with normal procalcitonin. 2patient to continue with remdesivir Solu-Medrol zinc and ascorbic acid. 3droplet isolation and respiratory support. 4no need for systemic antibiotic therapy. We will follow on clinical condition and cultures to further adjust medication if needed Thank you for this consultation will follow this patient along with you
[2021-08-01] MEDS: methylPREDNISolone SOD SUCCI 125 MG/2 ML VIAL IV SCH ×4 (03:39→23:12)
[2021-08-01 06:45] LABS: Glucose,Whole Blood 163 mg/dL (70-110)
[2021-08-01] MEDS: LEVOTHYROXINE 88 MCG TAB PO SCH (06:48)
[2021-08-01] MEDS: INSULIN ASPART (NovoLOG) 100 UNIT/ML VIAL SQ SCH ×4 (06:49→20:45)
[2021-08-01] MEDS: ALBUTEROL HFA INHALER INHALATION SCH ×4 (08:26→20:29)
[2021-08-01] MEDS: SYMBICORT 80-4.5 MCG INHALER INHALATION SCH ×2 (08:27→20:29)
[2021-08-01] MEDS: TIOTROPIUM 2.5 MCG INHALER INHALATION SCH (08:27)
--- NOTE | 2021-08-01 09:21 | P.PN ---
Subjective Progress Note Date: 08/01/21 Principal diagnosis: Coronavirus infection, sarcoidosis. This is a 66-year-old white male with history of multiple medical problems including sarcoidosis which was diagnosed back in 2014, the diagnosis was made by mediastinoscopy and lymph node biopsy. Since then, the patient has been following up with a garage laborer out of [facility], and he has been on prednisone all along since then. The prednisone dose has been gradually tapered over the years down to 5 mg daily although a 20 point he was on very high-dose at the time of his initial diagnosis. Recently he had an episode of bronchitis, and his dose was increased to 30 mg daily. Patient was supposedly evaluated at [facility] for potential lung transplantation, and that is in progress. Patient was seen yesterday at [facility] with 2 days history of shortness of breath, cough, the cough is productive with clear and sometimes yellow phlegm. Patient has been generally weak and fatigued. He normally wears 4 L of oxygen at home. Chest x-ray showed chronic changes in the lungs, scarring related to sarcoidosis, difficult to tell whether the patient has acute pneumonitis. However the patient had a positive covid 19 test, and the patient was supposed to transfer to [facility] however they did not have any beds available. Patient was sent to the ER at [facility], and he was admitted. Patient is again normally on 4 L nasal cannula, his O2 saturation on arrival was 86% on 4 L, and he was placed on 5 L instead. Presently the patient is on 3 L nasal cannula and his O2 sats is 98% labs done yesterday showed relatively normal d-dimer lactic acid was a bit elevated at 3.0. The patient is seen today 07/30/2021 in follow-up on the selective care unit. He is currently sitting up in bed. Awake and alert in no acute distress. Still with some dyspnea on exertion. Dyspnea with conversation. He is still maintaining good O2 saturations in the 90s on 4 L/m per nasal cannula which is his home level. O2 saturation at 98%. He is afebrile. Hemodynamically stable. Sputum culture pending. White count 16.9. Hemoglobin 12.7. Platelets 255. Lymphocytes 0.4. Glucose 149. ER was 0.29. Pro-calcitonin 0.07. He is continued on Symbicort, Spiriva, albuterol, IV Solu-Medrol. Remains on vitamin supplements. This is day #2 of Remdesivir. Lovenox for DVT prophylaxis. The patient was seen today 07/31/2021 in follow-up on the selective care unit. He is currently resting comfortably in bed. Awake and alert in no acute distress. Maintaining O2 saturations up to 99% on 4 L/m per nasal cannula. He's been afebrile. Hemodynamically stable. Sputum culture revealed no growth. White count 17.8. Hemoglobin 12.5. Platelet count 252. D-dimer 0.28. Sodium 140. Potassium 4.6. BUN 31. Creatinine 0.86. LDH 988. C-reactive protein 1.7. He is continued on Symbicort, Spiriva, albuterol, IV Solu-Medrol. Remains on vitamin supplements. This is day #3 of Remdesivir. Lovenox for DVT prophylaxis. Progress note dated 08/01/2021. The patient is again seen in room 357. He is currently on 4 L nasal cannula. He's not receiving any IV fluids. I did have a chance to speak to one of the lung transplant coordinators at [facility]. The patient is scheduled for right and left heart catheterizations later this month. Clinically, the patient is doing well. His saturations are stable. He continues on Symbicort, Spiriva, albuterol, and IV Solu-Medrol. He is day #4 of 5 of REM. No new labs today. Objective - Vital Signs Vital signs: Vital Signs Temp 97.8 F 08/01/21 04:00 Pulse 52 L 08/01/21 04:00 Resp 22 08/01/21 04:00 BP 121/79 08/01/21 04:00 Pulse Ox 97 08/01/21 04:00 FiO2 Intake & Output 07/31/21 08/01/21 08/01/21 18:59 06:59 18:59 Intake Total 730 354 Output Total 200 Balance 530 354 Intake: Intake, IV Titration 250 Amount Remdesivir 100 mg In 250 Sodium Chloride 0.9% 250 ml @ 250 mls/hr IVPB DAILY@1200 [facility] Rx#: [id number] Oral 480 354 Output: Urine 200 Other: # Voids 1 2 - Exam No acute distress, oriented 3. No conversational dyspnea or use of accessory muscles. Currently on 4 L nasal cannula. HEENT examination is grossly unremarkable. Neck supple. Full range of motion. No adenopathy thyromegaly or neck vein distention. Cardiovascular examination reveals regular rhythm rate. S1-S2 normal. No S3 or S4. No discernible murmur noted. Heart rate 79 bpm. Lungs reveal diffuse bilateral wheezes and scattered rhonchi. No crackles. Breath sounds equal bilaterally. Breath sounds are diminished throughout. Saturations are 97%. Abdomen soft bowel sounds are heard. No masses or tenderness. Extremities are intact. No cyanosis clubbing or edema. Skin is without rash or lesion. Neurologic examination is brief but nonfocal. - Labs CBC & Chem 7: 07/31/21 08:36 07/31/21 08:36 Labs: Abnormal Lab Results - Last 24 Hours (Table) 07/31/21 07/31/21 07/31/21 Range/Units 08:36 08:36 11:48 WBC 17.8 H (3.8-10.6) k/uL RBC 3.94 L (4.30-5.90) m/uL Hgb 12.5 L (13.0-17.5) gm/dL Neutrophils # 16.9 H (1.3-7.7) k/uL Lymphocytes # 0.3 L (1.0-4.8) k/uL BUN 31 H (9-20) mg/dL Glucose 201 H (74-99) mg/dL POC Glucose (mg/dL) 198 H (70-110) mg/dL Lactate Dehydrogenase 988 H (313-618) U/L C-Reactive Protein 1.7 H (<1.0) mg/dL 07/31/21 07/31/21 08/01/21 Range/Units 16:38 20:47 06:44 WBC (3.8-10.6) k/uL RBC (4.30-5.90) m/uL Hgb (13.0-17.5) gm/dL Neutrophils # (1.3-7.7) k/uL Lymphocytes # (1.0-4.8) k/uL BUN (9-20) mg/dL Glucose (74-99) mg/dL POC Glucose (mg/dL) 212 H 186 H 163 H (70-110) mg/dL Lactate Dehydrogenase (313-618) U/L C-Reactive Protein (<1.0) mg/dL Microbiology - Last 24 Hours (Table) 07/29/21 16:19 Gram Stain - Final Sputum Sputum Culture - Final Assessment and Plan Assessment: Acute coronavirus infection, with possible coronavirus associated pneumonia. The patient remains on REM. He is getting vitamins, Lovenox, and corticosteroids. History of pulmonary sarcoidosis, currently being evaluated for lung transplantation at [facility]. History of seizures. History of DJD. Status post vaccination for coronavirus infection. Hypothyroidism. Plan: Plan dated 08/01/2021. The patient's doing well. The patient could probably be considered for discharge by tomorrow after taking his last dose of REM. The patient remains on corticosteroids, vitamins, and Lovenox. The patient is on day #4 of a total of 5 days, of REM. Clinically he looks well. There is no conversational dyspnea or use of accessory muscles. No audible wheezing. I did speak to the lung recycle coordinator at [facility] yesterday. The patient is scheduled for a heart catheterization at the end of this month. Time with Patient: Less than 30
[2021-08-01] MEDS: ASCORBIC ACID 500 MG TAB PO SCH ×2 (09:57→20:17)
[2021-08-01] MEDS: CHOLECALCIFEROL 125 MCG (5000 IU) TABLET PO SCH (09:57)
[2021-08-01] MEDS: ZINC SULFATE 220 MG CAP PO SCH (09:57)
[2021-08-01] MEDS: ENOXAPARIN 40 MG/0.4 ML SYRINGE SQ SCH (09:57)
[2021-08-01] MEDS: CLOPIDOGREL 75 MG TAB PO SCH (09:57)
[2021-08-01] MEDS: levETIRAcetam 500 MG TAB PO SCH ×2 (09:57→20:17)
[2021-08-01] MEDS: ISOSORBIDE MONONITRATE ER 30 MG TAB.ER.24H PO SCH (09:57)
[2021-08-01] MEDS: CITALOPRAM HYDROBROMIDE 20 MG TAB PO SCH (10:07)
[2021-08-01 10:13] LABS: HCT 40.1 % (39.0-53.0); HGB 12.5 gm/dL (13.0-17.5); Hypochromasia Moderate; MCH 31.7 pg (25.0-35.0); MCHC 31.1 g/dL (31.0-37.0); Macrocytosis Slight; Mean Platelet Volume 7.7; Platelet Count 244 k/uL (150-450); RBC 3.93 m/uL (4.30-5.90); RDW 14.6 % (11.5-15.5); WBC 16.2 k/uL (3.8-10.6)
[2021-08-01 10:34] LABS: ALT 15 U/L (4-49); African American GFR (CKD) >90 (>60 ml/min/1.73 sqM); Albumin 3.4 g/dL (3.5-5.0); Anion Gap 6 mmol/L; Blood Urea Nitrogen 32 mg/dL (9-20); Calcium 8.3 mg/dL (8.4-10.2); Carbon Dioxide 31 mmol/L (22-30); Chloride 104 mmol/L (98-107); Glucose 195 mg/dL (74-99); Non-African American GFR(CKD) >90 (>60 ml/min/1.73 sqM); Sodium 141 mmol/L (137-145); Total Bilirubin 0.5 mg/dL (0.2-1.3); Total Protein 6.1 g/dL (6.3-8.2)
[2021-08-01 10:40] LABS: AST 23 U/L (17-59); Potassium 4.8 mmol/L (3.5-5.1)
[2021-08-01 10:41] LABS: Alkaline Phosphatase 52 U/L (38-126)
[2021-08-01 11:41] LABS: Glucose,Whole Blood 152 mg/dL (70-110)
[2021-08-01] MEDS: REMDESIVIR 100 MG in SODIUM CHLORIDE 0.9% 250 ML IVPB SCH (12:58)
--- NOTE | 2021-08-01 13:15 | P.PN ---
Subjective Progress Note Date: 08/01/21 This is a pleasant 66-year-old male who was recently admitted with increasing shortness of breath and found to have COVID-19 pneumonia also has sarcoidosis and possible sarcoid lung with pulmonary following. Infectious disease consulted and patient is continued on Remdesivir day 3 of 4 and will continue to complete the treatment. Patient also continues on IV steroids 60 mg every 6 along with vitamin and zinc supplements and patient is also continued on Lovenox. Patient does have albuterol inhaler scheduled and as needed. Patient is continued on 4 L which she chronically wears in the outpatient setting and pulmonary is following closely. Patient is afebrile and continues with shortness of breath with exertion, patient denies chest pain or palpitations. Review of systems: Constitutional: No reports of fatigue, fever, or chills Cardiovascular: No reports of chest pain or palpitations Respiratory: No reports of worsening shortness of breath or cough GI: No reports of nausea, no reports of vomiting, or diarrhea : No reports of dysuria or retention Neurovascular: no reports of generalized weakness All medications have been reviewed Active Medications Albuterol Sulfate (Albuterol Hfa Inhaler) 2 puff INHALATION RT-QID [facility] Last Admin: 08/01/21 11:11 Dose: 2 puff Albuterol Sulfate (Albuterol Hfa Inhaler) 2 puff INHALATION RT-Q4H PRN PRN Reason: Shortness Of Breath Or Wheezing Ascorbic Acid (Ascorbic Acid 500 Mg Tab) 500 mg PO BID [facility] Last Admin: 08/01/21 09:57 Dose: 500 mg Atorvastatin Calcium (Atorvastatin 40 Mg Tab) 40 mg PO HS [facility] Last Admin: 07/31/21 20:59 Dose: 40 mg Budesonide/Formoterol Fumarate (Symbicort 80-4.5 Mcg Inhaler) 2 puff INHALATION RT-BID [facility] Last Admin: 08/01/21 08:27 Dose: 2 puff Cholecalciferol (Cholecalciferol 125 Mcg (5000 Iu) Tablet) 125 mcg PO DAILY [facility] Last Admin: 08/01/21 09:57 Dose: 125 mcg Citalopram Hydrobromide (Citalopram Hydrobromide 20 Mg Tab) 40 mg PO DAILY [facility] Last Admin: 08/01/21 10:07 Dose: 40 mg Clopidogrel Bisulfate (Clopidogrel 75 Mg Tab) 75 mg PO DAILY [facility] Last Admin: 08/01/21 09:57 Dose: 75 mg Enoxaparin Sodium (Enoxaparin 40 Mg/0.4 Ml Syringe) 40 mg SQ DAILY [facility] Last Admin: 08/01/21 09:57 Dose: 40 mg Remdesivir 100 mg/ Sodium (Chloride) 250 mls @ 250 mls/hr IVPB DAILY@1200 [facility] Stop: 08/02/21 12:59 Last Admin: 08/01/21 12:58 Dose: 250 mls/hr Insulin Aspart (Insulin Aspart (Novolog) 100 Unit/Ml Vial) 0 unit SQ ACHS [facility]; Protocol Last Admin: 08/01/21 12:58 Dose: 2 unit Isosorbide Mononitrate (Isosorbide Mononitrate Er 30 Mg Tab.Er.24h) 30 mg PO DAILY [facility] Last Admin: 08/01/21 09:57 Dose: 30 mg Levetiracetam (Levetiracetam 500 Mg Tab) 500 mg PO Q12HR [facility] Last Admin: 08/01/21 09:57 Dose: 500 mg Levothyroxine Sodium (Levothyroxine 88 Mcg Tab) 176 mcg PO DAILY@0630 [facility] Last Admin: 08/01/21 06:48 Dose: 176 mcg Methylprednisolone Sodium Succinate (Methylprednisolone Sod Succi 125 Mg/2 Ml Vial) 60 mg IV Q6HR [facility] Last Admin: 08/01/21 12:59 Dose: 60 mg Miscellaneous Information (Pneumonia Protocol Utilized 1 Each Misc) 1 each PO ONCE PRN PRN Reason: Per Protocol Tiotropium Oil Trough (Tiotropium 2.5 Mcg Inhaler) 2 puff INHALATION RT-DAILY [facility] Last Admin: 08/01/21 08:27 Dose: 2 puff Zinc Sulfate (Zinc Sulfate 220 Mg Cap) 220 mg PO DAILY [facility] Last Admin: 08/01/21 09:57 Dose: 220 mg PHYSICAL EXAMINATION: GENERAL: The patient is alert and oriented x4, Well developed, well nourished. Obese. HEENT: Pupils are round and equally reacting to light. EOMI. no scleral icterus. No conjunctival pallor. Normocephalic, atraumatic. No pharyngeal erythema. No thyromegaly. CARDIOVASCULAR: S1 and S2 muffled PULMONARY: diminished breath sounds bilaterally with some scattered rhonchi noted. ABDOMEN: soft. Nontender on exam. obese. non-distended, normoactive bowel sounds. No palpable organomegaly. MUSCULOSKELETAL: No joint swelling or deformity. EXTREMITIES: No cyanosis, clubbing, or pedal edema. NEUROLOGICAL: Gross neurological examination did not reveal any focal deficits. SKIN: No rashes. Assessment: Acute COVID-19 infection with COVID-19 pneumonia with acute hypoxic respiratory failure Pulmonary sarcoidosis Chronic hypoxic respiratory failure secondary to above and chronically wears O2 of 4 L at home hypertension hypothyroidism GI prophylaxis DVT prophylaxis Full code Plan: Recommend to continue with current medications and management with pulmonary following in infectious disease was consulted. Patient continues on Remdesivir day for a 5 and scheduled to receive his last dose tomorrow. Patient also continues on subcutaneous Lovenox along with vitamin C supplements and albuterol inhaler 4 times a day and when necessary and recommend to continue. Patient continues on 4 L of oxygen which is his baseline. Per pulmonary patient follows with [facility] for possible lung transplant and is scheduled later this month for heart catheterization. Encouraged oral intake and increase activity as tolerated. Will follow-up with repeat labs and chest x-ray in the morning. Due to multiple complex medical issues, prognosis is guarded. Incentive spirometer was added and encourage the patient to continue using at least 10 times every hour while awake. Possible discharge in 24 hours. The impression and plan of care has been dictated by Rosette Dodd, nurse sharee ortiz as directed. MD Abhay I have performed a history and examination and MDM of this patient, discussed the same with the dictator, and agree with the dictator's assessment and plan as written ,documented as a scribe. Based on total visit time, I have performed more than 50% of the visit. Any additional findings or plans will be noted. Objective - Vital Signs Vital signs: Vital Signs Temp 98.0 F 08/01/21 10:05 Pulse 94 08/01/21 10:05 Resp 16 08/01/21 10:05 BP 133/69 08/01/21 10:05 Pulse Ox 99 08/01/21 10:05 FiO2 Intake & Output 07/31/21 08/01/21 08/01/21 18:59 06:59 18:59 Intake Total 730 354 Output Total 200 Balance 530 354 Intake: Intake, IV Titration 250 Amount Remdesivir 100 mg In 250 Sodium Chloride 0.9% 250 ml @ 250 mls/hr IVPB DAILY@1200 [facility] Rx#: [id number] Oral 480 354 Output: Urine 200 Other: Voiding Method Bedside Commode # Voids 1 2 - Labs CBC & Chem 7: 08/01/21 08:49 08/01/21 08:49 Labs: Abnormal Lab Results - Last 24 Hours (Table) 07/31/21 07/31/21 08/01/21 Range/Units 16:38 20:47 06:44 WBC (3.8-10.6) k/uL RBC (4.30-5.90) m/uL Hgb (13.0-17.5) gm/dL MCV (80.0-100.0) fL Carbon Dioxide (22-30) mmol/L BUN (9-20) mg/dL Glucose (74-99) mg/dL POC Glucose (mg/dL) 212 H 186 H 163 H (70-110) mg/dL Calcium (8.4-10.2) mg/dL Total Protein (6.3-8.2) g/dL Albumin (3.5-5.0) g/dL 08/01/21 08/01/21 08/01/21 Range/Units 08:49 08:49 11:37 WBC 16.2 H (3.8-10.6) k/uL RBC 3.93 L (4.30-5.90) m/uL Hgb 12.5 L (13.0-17.5) gm/dL MCV 102.0 H (80.0-100.0) fL Carbon Dioxide 31 H (22-30) mmol/L BUN 32 H (9-20) mg/dL Glucose 195 H (74-99) mg/dL POC Glucose (mg/dL) 152 H (70-110) mg/dL Calcium 8.3 L (8.4-10.2) mg/dL Total Protein 6.1 L (6.3-8.2) g/dL Albumin 3.4 L (3.5-5.0) g/dL Microbiology - Last 24 Hours (Table) 07/29/21 16:19 Gram Stain - Final Sputum Sputum Culture - Final
[2021-08-01 16:36] LABS: Glucose,Whole Blood 203 mg/dL (70-110)
[2021-08-01] MEDS: ATORVASTATIN 40 MG TAB PO SCH (20:17)
[2021-08-01 20:34] LABS: Glucose,Whole Blood 166 mg/dL (70-110)
[2021-08-02] MEDS: methylPREDNISolone SOD SUCCI 125 MG/2 ML VIAL IV SCH (04:32)
[2021-08-02] MEDS: LEVOTHYROXINE 88 MCG TAB PO SCH (04:32)
[2021-08-02 06:22] LABS: Glucose,Whole Blood 189 mg/dL (70-110)
[2021-08-02] MEDS: INSULIN ASPART (NovoLOG) 100 UNIT/ML VIAL SQ SCH ×2 (06:32→11:47)
--- NOTE | 2021-08-02 06:43 | P.PN ---
Subjective Progress Note Date: 08/01/21 Principal diagnosis: Covid 19 pneumonia Patient is a 66 year male with a past medical history significant for sarcoidosis presenting to the hospital for evaluation of increasing shortness of breath and cough symptom onset 07/29/2021 and has been diagnosed with the Covid 19 pneumonia. On today's evaluation that is 08/02/2019, patient denies having any fever or chills, patient is breathing slightly comfortably, patient denies any chest pain or cough has decreased intensity with the patient's sputum production no abdominal pain no diarrhea Objective - Vital Signs Vital signs: Vital Signs Temp 98.0 F 08/01/21 10:05 Pulse 94 08/01/21 10:05 Resp 16 08/01/21 10:05 BP 133/69 08/01/21 10:05 Pulse Ox 99 08/01/21 10:05 FiO2 Intake & Output 07/31/21 08/01/21 08/01/21 18:59 06:59 18:59 Intake Total 730 354 Output Total 200 Balance 530 354 Intake: Intake, IV Titration 250 Amount Remdesivir 100 mg In 250 Sodium Chloride 0.9% 250 ml @ 250 mls/hr IVPB DAILY@1200 [facility] Rx#: [id number] Oral 480 354 Output: Urine 200 Other: # Voids 1 2 - Exam GENERAL DESCRIPTION: An elderly male lying in bed in no distress RESPIRATORY SYSTEM: Unlabored breathing , coarse breath sounds bilaterally HEART: S1 S2 regular rate and rhythm , ABDOMEN: Soft , no tenderness EXTREMITIES: No edema feet - Labs CBC & Chem 7: 08/01/21 08:49 08/01/21 08:49 Labs: Abnormal Lab Results - Last 24 Hours (Table) 07/31/21 07/31/21 07/31/21 Range/Units 11:48 16:38 20:47 POC Glucose (mg/dL) 198 H 212 H 186 H (70-110) mg/dL 08/01/21 Range/Units 06:44 POC Glucose (mg/dL) 163 H (70-110) mg/dL Microbiology - Last 24 Hours (Table) 07/29/21 16:19 Gram Stain - Final Sputum Sputum Culture - Final Assessment and Plan (1) COVID-19 Current Visit: Yes Status: Acute Code(s): U07.1 - COVID-19 SNOMED Code(s): 010503055 Plan: 1patient presented to hospital with increasing shortness of breath which is multifactorial and likely component of COVID-19 infection in this patient with underlying sarcoidosis and clinic not behaving as a secondary bacterial pneumonia with normal procalcitonin. 2patient to continue with remdesivir day #4 along with Solu-Medrol zinc and ascorbic acid. 3droplet isolation and respiratory support. Time with Patient: Less than 30
[2021-08-02 08:17] LABS: Basophils # (A) 0.1 k/uL (0-0.2); Basophils % (A) 1 %; Eosinophils % (A) 0 %; HCT 39.7 % (39.0-53.0); Hypochromasia Slight; Lymphocytes # (A) 0.2 k/uL (1.0-4.8); Lymphocytes % (A) 2 %; MCH 32.6 pg (25.0-35.0); MCHC 32.7 g/dL (31.0-37.0); MCV 99.7 fL (80.0-100.0); Macrocytosis Slight; Mean Platelet Volume 7.2; Monocytes # (A) 0.5 k/uL (0-1.0); Monocytes % (A) 5 %; Neutrophils # (A) 11.1 k/uL (1.3-7.7); Neutrophils % (A) 92 %; Platelet Count 257 k/uL (150-450); RBC 3.98 m/uL (4.30-5.90)
--- NOTE | 2021-08-02 08:23 | XR ---
EXAMINATION TYPE: XR chest 1V portable DATE OF EXAM: 08/02/2021 COMPARISON: 07/30/2021 HISTORY: Shortness of breath TECHNIQUE: Single frontal view of the chest is obtained. FINDINGS: Bilateral areas of consolidation and pleural effusion are stable. Heart size stable. Posts urgical change of both shoulders. Underlying COPD and chronic interstitial lung disease suspected. IMPRESSION: Diffuse bilateral infiltrates stable.
[2021-08-02] MEDS: TIOTROPIUM 2.5 MCG INHALER INHALATION SCH (08:29)
[2021-08-02] MEDS: SYMBICORT 80-4.5 MCG INHALER INHALATION SCH (08:29)
[2021-08-02] MEDS: ALBUTEROL HFA INHALER INHALATION SCH ×3 (08:29→15:48)
[2021-08-02 08:30] LABS: African American GFR (CKD) >90 (>60 ml/min/1.73 sqM); Anion Gap 5 mmol/L; Blood Urea Nitrogen 29 mg/dL (9-20); Calcium 8.2 mg/dL (8.4-10.2); Carbon Dioxide 33 mmol/L (22-30); Chloride 102 mmol/L (98-107); Glucose 142 mg/dL (74-99); Non-African American GFR(CKD) >90 (>60 ml/min/1.73 sqM); Potassium 4.7 mmol/L (3.5-5.1); Sodium 140 mmol/L (137-145)
[2021-08-02] MEDS: CITALOPRAM HYDROBROMIDE 20 MG TAB PO SCH (09:30)
[2021-08-02] MEDS: CLOPIDOGREL 75 MG TAB PO SCH (09:30)
[2021-08-02] MEDS: CHOLECALCIFEROL 125 MCG (5000 IU) TABLET PO SCH (09:30)
[2021-08-02] MEDS: levETIRAcetam 500 MG TAB PO SCH (09:31)
[2021-08-02] MEDS: ASCORBIC ACID 500 MG TAB PO SCH (09:31)
[2021-08-02] MEDS: ZINC SULFATE 220 MG CAP PO SCH (09:31)
[2021-08-02] MEDS: ISOSORBIDE MONONITRATE ER 30 MG TAB.ER.24H PO SCH (09:31)
[2021-08-02] MEDS: ENOXAPARIN 40 MG/0.4 ML SYRINGE SQ SCH (09:31)
[2021-08-02 10:28] VITALS: TEMP 97.8
[2021-08-02 11:34] LABS: Glucose,Whole Blood 243 mg/dL (70-110)
[2021-08-02] MEDS: REMDESIVIR 100 MG in SODIUM CHLORIDE 0.9% 250 ML IVPB SCH (11:48)
--- NOTE | 2021-08-02 11:51 | P.PN ---
Subjective Progress Note Date: 08/02/21 Principal diagnosis: Coronavirus infection, sarcoidosis. This is a 66-year-old white male with history of multiple medical problems including sarcoidosis which was diagnosed back in 2014, the diagnosis was made by mediastinoscopy and lymph node biopsy. Since then, the patient has been following up with a user experience researcher out of [facility], and he has been on prednisone all along since then. The prednisone dose has been gradually tapered over the years down to 5 mg daily although a 20 point he was on very high-dose at the time of his initial diagnosis. Recently he had an episode of bronchitis, and his dose was increased to 30 mg daily. Patient was supposedly evaluated at [facility] for potential lung transplantation, and that is in progress. Patient was seen yesterday at [facility] with 2 days history of shortness of breath, cough, the cough is productive with clear and sometimes yellow phlegm. Patient has been generally weak and fatigued. He normally wears 4 L of oxygen at home. Chest x-ray showed chronic changes in the lungs, scarring related to sarcoidosis, difficult to tell whether the patient has acute pneumonitis. However the patient had a positive covid 19 test, and the patient was supposed to transfer to [facility] however they did not have any beds available. Patient was sent to the ER at [facility], and he was admitted. Patient is again normally on 4 L nasal cannula, his O2 saturation on arrival was 86% on 4 L, and he was placed on 5 L instead. Presently the patient is on 3 L nasal cannula and his O2 sats is 98% labs done yesterday showed relatively normal d-dimer lactic acid was a bit elevated at 3.0. The patient is seen today 07/30/2021 in follow-up on the selective care unit. He is currently sitting up in bed. Awake and alert in no acute distress. Still with some dyspnea on exertion. Dyspnea with conversation. He is still maintaining good O2 saturations in the 90s on 4 L/m per nasal cannula which is his home level. O2 saturation at 98%. He is afebrile. Hemodynamically stable. Sputum culture pending. White count 16.9. Hemoglobin 12.7. Platelets 255. Lymphocytes 0.4. Glucose 149. ER was 0.29. Pro-calcitonin 0.07. He is continued on Symbicort, Spiriva, albuterol, IV Solu-Medrol. Remains on vitamin supplements. This is day #2 of Remdesivir. Lovenox for DVT prophylaxis. The patient was seen today 07/31/2021 in follow-up on the selective care unit. He is currently resting comfortably in bed. Awake and alert in no acute distress. Maintaining O2 saturations up to 99% on 4 L/m per nasal cannula. He's been afebrile. Hemodynamically stable. Sputum culture revealed no growth. White count 17.8. Hemoglobin 12.5. Platelet count 252. D-dimer 0.28. Sodium 140. Potassium 4.6. BUN 31. Creatinine 0.86. LDH 988. C-reactive protein 1.7. He is continued on Symbicort, Spiriva, albuterol, IV Solu-Medrol. Remains on vitamin supplements. This is day #3 of Remdesivir. Lovenox for DVT prophylaxis. Progress note dated 08/01/2021. The patient is again seen in room 357. He is currently on 4 L nasal cannula. He's not receiving any IV fluids. I did have a chance to speak to one of the lung transplant coordinators at [facility]. The patient is scheduled for right and left heart catheterizations later this month. Clinically, the patient is doing well. His saturations are stable. He continues on Symbicort, Spiriva, albuterol, and IV Solu-Medrol. He is day #4 of 5 of REM. No new labs today. Progress note dated 08/02/2021. The patient is again seen in room 357. The patient's on 4 L, which is what he is using at home. The patient is not receiving any IV fluids. The patient has completed his REM. From my perspective, the patient could be discharged. The patient is placed back on prednisone 30 mg a day, which is what he was on, prior to being admitted to the hospital. The patient's resting comfortably without a ny complaints. He denies overwhelming shortness of breath. White count 12, hemoglobin 13, hematocrit 39.7, platelet count 257,000. Sodium, potassium, and chlorides are all normal. CO2 33. BUN 29, with a creatinine 0.75. Chest x-ray shows diffuse bilateral infiltrates, which are stable. Objective - Vital Signs Vital signs: Vital Signs Temp 97.8 F 08/02/21 10:21 Pulse 64 08/02/21 10:21 Resp 32 H 08/02/21 10:21 BP 131/60 08/02/21 10:21 Pulse Ox 99 08/02/21 10:21 FiO2 Intake & Output 08/01/21 08/02/21 08/02/21 18:59 06:59 18:59 Intake Total 854 360 118 Output Total 390 625 Balance 464 -265 118 Intake: Oral 854 360 118 Output: Urine 390 625 Other: Voiding Method Bedside Commode Bedside Commode # Voids 3 # Bowel Movements 0 - Exam No acute distress, oriented 3. No conversational dyspnea or use of accessory muscles. Currently on 4 L nasal cannula. HEENT examination is grossly unremarkable. Neck supple. Full range of motion. No adenopathy thyromegaly or neck vein distention. Cardiovascular examination reveals regular rhythm rate. S1-S2 normal. No S3 or S4. No discernible murmur noted. Heart rate 64 bpm. Lungs reveal diffuse bilateral wheezes and scattered rhonchi. No crackles. Breath sounds equal bilaterally. Breath sounds are diminished throughout. Saturations are 99 %. Abdomen soft bowel sounds are heard. No masses or tenderness. Extremities are intact. No cyanosis clubbing or edema. Skin is without rash or lesion. Neurologic examination is brief but nonfocal. - Labs CBC & Chem 7: 08/02/21 07:15 08/02/21 07:15 Labs: Abnormal Lab Results - Last 24 Hours (Table) 08/01/21 08/01/21 08/02/21 Range/Units 16:30 20:32 06:06 WBC (3.8-10.6) k/uL RBC (4.30-5.90) m/uL Neutrophils # (1.3-7.7) k/uL Lymphocytes # (1.0-4.8) k/uL Carbon Dioxide (22-30) mmol/L BUN (9-20) mg/dL Glucose (74-99) mg/dL POC Glucose (mg/dL) 203 H 166 H 189 H (70-110) mg/dL Calcium (8.4-10.2) mg/dL 08/02/21 08/02/21 08/02/21 Range/Units 07:15 07:15 11:32 WBC 12.0 H (3.8-10.6) k/uL RBC 3.98 L (4.30-5.90) m/uL Neutrophils # 11.1 H (1.3-7.7) k/uL Lymphocytes # 0.2 L (1.0-4.8) k/uL Carbon Dioxide 33 H (22-30) mmol/L BUN 29 H (9-20) mg/dL Glucose 142 H (74-99) mg/dL POC Glucose (mg/dL) 243 H (70-110) mg/dL Calcium 8.2 L (8.4-10.2) mg/dL Assessment and Plan Assessment: Acute coronavirus infection, with possible coronavirus associated pneumonia. The patient has completed her REM. He is getting vitamins, Lovenox, and corticosteroids. History of pulmonary sarcoidosis, currently being evaluated for lung transplantation at [facility]. History of seizures. History of DJD. Status post vaccination for coronavirus infection. Hypothyroidism. Plan: Plan dated 08/01/2021. The patient's doing well. The patient could probably be considered for discharge by tomorrow after taking his last dose of REM. The patient remains on corticosteroids, vitamins, and Lovenox. The patient is on day #4 of a total of 5 days, of REM. Clinically he looks well. There is no conversational dyspnea or use of accessory muscles. No audible wheezing. I did speak to the lung tra nsplant coordinator at [facility] yesterday. The patient is scheduled for a heart catheterization at the end of this month. Plan dated 08/02/2021. The patient could be considered for discharge. I asked the nurse to call the primary service and let them know, that from the pulmonary standpoint, the patient could be discharged. Solu-Medrol discontinued. The patient's placed back on prednisone 30 mg a day. The patient has completed his REM. The patient will follow-up at [facility], to finish his evaluation, for consideration of listing, for lung transplantation. I did speak to the coordinator. The patient apparently scheduled for right heart catheterization and left heart catheterization on August 07. Time with Patient: Less than 30
[2021-08-02 12:14] VITALS: BP 121/57; PULSE 47; RESP 22
[2021-08-03] MEDS ORDERED: predniSONE 10 MG TAB PO SCH (09:00)
--- NOTE | 2021-08-03 10:08 | P.DS ---
Providers Date of admission: 07/29/21 09:36 Expected date of discharge: 08/02/21 Attending physician: Cathy Rose Consults: 07/29/21 09:34 Consult Physician Urgent Consulting Provider: Meño Nova Consult Reason/Comments: dyspnea, covid, sarcoid, pneumonia Do you want consulting provider notified?: Yes 07/31/21 12:47 Consult Physician Urgent Consulting Provider: Rubén Campos Consult Reason/Comments: covid/ remdes Do you want consulting provider notified?: Yes Primary care physician: Pascual Andres [facility] Course: Final diagnosis Acute COVID-19 infection with COVID-19 pneumonia with acute hypoxic respiratory failure Pulmonary sarcoidosis Chronic hypoxic respiratory failure secondary to above and chronically wears O2 of 4 L at home hypertension hypothyroidism GI prophylaxis DVT prophylaxis Full code Discharge disposition Patient is being discharged in a stable condition with guarded prognosis to home. Patient will follow-up with Dr. Andres in the outpatient setting upon discharge. Patient is to also follow-up with his home theatre technician as scheduled. Patient will continue vitamin and zinc supplementation along with a prednisone taper on discharge. Total time taken is greater than 35 minutes. Hospital course This is a 66-year-old male who was recently admitted with increasing shortness of breath and found to have COVID-19 pneumonia and also history of sarcoidosis with possible sarcoid lung with pulmonary following. Infectious disease also following and patient did receive Remdesivir and has completed the course and will continue on a prednisone taper along with vitamin and zinc supplements on discharge. Patient also provided with albuterol inhaler and encouraged to follow-up with his home theatre technician and ski patrol officer in the outpatient setting. Patient is maintained on 4 L which is chronic and has home O2 oxygen already arranged. Patient feeling better and would like to be discharged. Currently no reports of chest pain, shortness of breath, or palpitations. Patient is afebrile. No reports of nausea or vomiting and patient is tolerating diet. Patient will be discharged home today. On exam vital signs are stable. Cardio S1, S2 are muffled. Respiratory system shows diminished breath sounds at the bases with no wheezing or rhonchi noted. Abdomen is soft and nontender. Nervous system shows no focal deficits. Please refer to medication reconciliation sheet for a list of medications. The impression and plan of care has been dictated by Rosette Dodd, Nurse Practitioner as directed. Dr. Steven MD I have performed a history and examination and MDM of this patient, discussed the same with the dictator, and agree with the dictator's assessment and plan as written ,documented as a scribe. Based on total visit time, I have performed more than 50% of the visit. Patient Condition at Discharge: Stable Plan - Discharge Summary Discharge Rx Participant: No New Discharge Prescriptions: New Zinc Sulfate [Orazinc] 220 mg PO DAILY 14 Days #14 cap Albuterol Inhaler [Ventolin Hfa Inhaler] 2 puff INHALATION RT-Q4H PRN each PRN Reason: Shortness Of Breath Or Wheezing Cholecalciferol [Vitamin D3 (125 Mcg = 5000 Iu)] 125 mcg PO DAILY 30 Days #30 tab predniSONE 10 mg PO DIRECTED #30 tab Albuterol Inhaler [Ventolin Hfa Inhaler] 2 puff INHALATION RT-QID 30 Days #1 each Ascorbic Acid [Vitamin C] 500 mg PO BID 30 Days #30 tab Continue Citalopram Hydrobromide [CeleXA] 40 mg PO DAILY Furosemide [Lasix] 20 mg PO DAILY Levothyroxine Sodium [Synthroid] 175 mcg PO DAILY Ipratropium-Albuterol Nebulize [Duoneb 0.5 mg-3 mg/3 ml Soln] 3 ml INHALATION RT-TID PRN PRN Reason: Shortness Of Breath Clopidogrel [Plavix] 75 mg PO DAILY levETIRAcetam [Keppra] 500 mg PO Q12HR Metoprolol Succinate [Metoprolol Succinate ER] 25 mg PO DAILY Fluticasone/Umeclidin/Vilanter [Trelegy Ellipta 100-62.5-25] 1 puff INHALATION RT-DAILY Isosorbide Mononitrate ER [Imdur] 30 mg PO DAILY Atorvastatin [Lipitor] 40 mg PO HS Discontinued predniSONE 30 mg PO DAILY Discharge Medication List Citalopram Hydrobromide [CeleXA] 40 mg PO DAILY 03/12/14 [History] Furosemide [Lasix] 20 mg PO DAILY 03/12/14 [History] Levothyroxine Sodium [Synthroid] 175 mcg PO DAILY 10/11/16 [History] Atorvastatin [Lipitor] 40 mg PO HS 07/29/21 [History] Clopidogrel [Plavix] 75 mg PO DAILY 07/29/21 [History] Fluticasone/Umeclidin/Vilanter [Trelegy Ellipta 100-62.5-25] 1 puff INHALATION RT-DAILY 07/29/21 [History] Ipratropium-Albuterol Nebulize [Duoneb 0.5 mg-3 mg/3 ml Soln] 3 ml INHALATION RT -TID PRN 07/29/21 [History] Isosorbide Mononitrate ER [Imdur] 30 mg PO DAILY 07/29/21 [History] Metoprolol Succinate [Metoprolol Succinate ER] 25 mg PO DAILY 07/29/21 [History] levETIRAcetam [Keppra] 500 mg PO Q12HR 07/29/21 [History] Albuterol Inhaler [Ventolin Hfa Inhaler] 2 puff INHALATION RT-Q4H PRN each 08/02/21 [Rx] Albuterol Inhaler [Ventolin Hfa Inhaler] 2 puff INHALATION RT-QID 30 Days #1 each 08/02/21 [Rx] Ascorbic Acid [Vitamin C] 500 mg PO BID 30 Days #30 tab 08/02/21 [Rx] Cholecalciferol [Vitamin D3 (125 Mcg = 5000 Iu)] 125 mcg PO DAILY 30 Days #30 tab 08/02/21 [Rx] Zinc Sulfate [Orazinc] 220 mg PO DAILY 14 Days #14 cap 08/02/21 [Rx] predniSONE 10 mg PO DIRECTED #30 tab 08/02/21 [Rx] Follow up Appointment(s)/Referral(s): Pascual Andres MD [Primary Care Provider] - 1-2 days (please schedule folllow up with your primary doctor, inform them you were hospitalized with covid testing + 07/29. ) Ambulatory/Diagnostic Orders: Complete Blood Count w/diff [LAB.AMB] Time Frame: 3 Days, Location: None Selected Patient Instructions/Handouts: COVID-19 (Coronavirus Disease 2019) (DC) Activity/Diet/Wound Care/Special Instructions: Activity Limited until follow-up Follow-up with Ghassan Bingham as scheduled Follow-up with your home theatre technician at scheduled appointment Follow-up primary care provider on discharge Continue taking medications as prescribed Recommend repeat labs of CBC and BMP in the outpatient setting Continue steroid taper until finished tested positive 6/18 follow CDC quarantine guidelines, 5 days if asymptomatic and no fever. 10 days if having symptoms. Discharge Disposition: HOME SELF-CARE
== END 2021-08-02 16:15 | disposition home or self-care (01) | DRG 177 ==
LOC: EC 09:06 → 3SCARD 09:36
PROVIDERS: ADMIT Internal Medicine; ATTEND Internal Medicine
PROC: XW033E5 Introduction of Remdesivir Anti-infective into Peripheral Vein, Percutaneous Approach, New Technology Group 5 (ICD-10-PCS; principal; 2021-07-29)
DX: U07.1 COVID-19 (principal); J12.82 Pneumonia due to coronavirus disease 2019; J96.21 Acute and chronic respiratory failure with hypoxia; E03.9 Hypothyroidism, unspecified; E78.5 Hyperlipidemia, unspecified; F32.A Depression, unspecified; G40.909 Epilepsy, unspecified, not intractable, without status epilepticus; I10 Essential (primary) hypertension; M19.90 Unspecified osteoarthritis, unspecified site; D86.0 Sarcoidosis of lung; Z96.612 Presence of left artificial shoulder joint; Z96.642 Presence of left artificial hip joint; Z79.02 Long term (current) use of antithrombotics/antiplatelets; Z79.890 Hormone replacement therapy; Z79.899 Other long term (current) drug therapy; Z99.81 Dependence on supplemental oxygen; Z86.14 Personal history of Methicillin resistant Staphylococcus aureus infection; Z83.3 Family history of diabetes mellitus; Z82.5 Family history of asthma and other chronic lower respiratory diseases; Z82.49 Family history of ischemic heart disease and other diseases of the circulatory system
CPT/HCPCS: 71045; 71046; 80048; 80053; 83605; 83615; 84145; 85025; 85027; 85379; 86140; 87070; 87205; 93005; 94640; 96374; 99285